=== PATIENT | female | born 1985 | race Caucasian/White ===

== ENCOUNTER 2017-02-10 12:27 | Inpatient (IN) | payer OTHER ==
[~2017-02-10] VITALS: Ht 162.6 cm; Wt 110.9 kg
[2017-02-10] MEDS ORDERED: PRENATAL ONE D1 EACH PO (12:52)
[2017-02-10 12:59] LABS: ABSOLUTE BASOPHIL COUNT 0 /CUMM (0.0-0.2); ABSOLUTE EOSINOPHIL COUNT 0.1 /CUMM (0.0-0.7); ABSOLUTE GRANULOCYTE CT 7.4 /CUMM (1.4-6.5); ABSOLUTE LYMPH COUNT 1.3 /CUMM (1.2-3.4); ABSOLUTE MONOCYTE COUNT 0.3 /CUMM (0.10-0.60); BASOPHIL % 0.1 % (0.0-2.0); EOSINOPHIL % 0.8 % (0-5); GRANULOCYTE % 80.8 % (42.2-75.2); HEMATOCRIT 37.8 % (37-47); MEAN CORPUSCULAR HGB 27.8 PG (27.0-31.0); MEAN CORPUSCULAR HGB CONC 33.3 G/DL (33.0-37.0); MEAN CORPUSCULAR VOLUME 83.5 FL (81.0-99.0); MEAN PLATELET VOLUME 8.8 FL (7.4-10.4); PLATELET COUNT 231 /CUMM (130-400); RBC DISTRIBUTION WIDTH 15.4 % (11.5-14.5); RED BLOOD CELL CT 4.53 /CUMM (4.20-5.40); WHITE BLOOD CELL COUNT 9.1 /CUMM (4.8-10.8)
--- NOTE | 2017-02-10 19:20 | History & Physical ---
General Information and HPI MD Statement: I have seen and personally examined NICOLAS JANE and documented this H&P. The patient is a 31 year old female at [38] weeks and [2] days gestation who presented with a chief complaint of [induction of labor for high blood pressure] . Source of Information: patient Exam Limitations: no limitations History of Present Illness: 31-year-old 1 para 0 who presents at 38 weeks and 2 days for induction of labor for mildly clamps. She began presenting with elevated blood pressures at 36 weeks and 5 days. The pressures have ranged from 140-160/80 to 90s. On initial presentation today blood pressure 137/83, blood pressures have ranged from 137-150/83-100. She had a recent 24-hour urine collection with a total protein of 666 mg. She denies headaches, visual changes, right upper quadrant or epigastric pain. Patient's history significant for acid reflux for which she has been taking Zantac, history of depression in 2002 she did not require medication during , history of eating disorder, BMI of 36.4 and initial visit. She relays a history of a "hole in her heart at ". She had a normal ATU visits and echocardiogram. 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 History ingredient specialist History : 1 Para: 0 Last Menstrual Period: 05/18/2016 Estimated Delivery Date: 04/25/2017 Past ingredient specialist History: none Medical History Blood Transfusion Hx: No Neurological: NONE EENT: labyrinthitis Cardiovascular: NONE Respiratory: NONE Gastrointestinal: GERD Hepatic: NONE Renal: NONE Musculoskeletal: NONE Psychiatric: depression, eating disorder Endocrine: NONE Blood Disorders: NONE 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 EENTM: Reports: no symptoms. Cardiovascular: Reports: no symptoms. Respiratory: Reports: no symptoms. GI: Reports: no symptoms. Genitourinary: Reports: see HPI. Musculoskeletal: Reports: no symptoms. Skin: Reports: no symptoms. Neurological/Psychological: Reports: no symptoms. Hematologic/Endocrine: Reports: no symptoms. Immunologic/Allergic: Reports: no symptoms. All Other Systems: Reviewed and Negative Exam & Diagnostic Data Last 24 Hrs of Vital Signs/I&O Intake & Output 02/10 1600 02/10 0800 02/10 0000 Intake Total Output Total Balance Patient 245 lb Weight Obstetric Exam Wgt Gained During : 35 Pelvimetry: na Dilation (cm): 0 Effacement (%): 50 Station: -3 Membranes: intact Fluid: unknown Fundal Height (cm): 40 Multiple Gestation? No Contractions: 0 #1 - FHR Baseline: 130 Category: 1 Estimated Weight: 7.5 Presentation: vtx by us Patient for Induction? Yes Lou Score Lou Score Response Value Cervix Position: posterior 0 Cervix Consistency: soft 2 Cervix Effacement: 30-50% 1 Cervix Dilation: closed 0 Total 3 Physical Exam General Appearance Alert (NAD), Oriented X3, Cooperative, No Acute Distress Skin No Rashes, No Breakdown, No Significant Lesion HEENT PERRLA Neck Supple Cardiovascular Regular Rate Lungs Clear to Auscultation, Normal Air Movement Abdomen Normal Bowel Sounds, Soft, No Tenderness, No Hepatospenomegaly, No Masses, gravid Neurological Normal Gait, Normal Speech, Strength at 5/5 X4 Ext Extremities No Clubbing, No Cyanosis Reproductive (FEMALE) Normal female genitalia Labs Blood Type & Rh: Opos Antibody Screen: neg Hct/Hgb & Platelets #1: 13.8 42. 288 Hct/Hgb & Platelets #2: 12.8 44.5 297 Rubella: imm VDRL #1: neg VDRL #2: neg HbsAg: neg HIV #1: neg HIV #2 neg 1 Hr P Group B Strep: neg Initial Ultrasound: 9.4w Anatomy Ultrasound: 20.2, ant plac echo, nl edward and fx "trivial pulmonary valve regurg) Ultrasound for EFW: 52% 36w+2 days, @ ATU 2625 Genetic Testin+4nl nt Last 24 Hrs of Labs/José: Laboratory Tests 02/10/17 1242: Ur Random Creatinine 48.4, U Random Total Protein 20 H, Protein/Creatinin Ratio 0.4 H 02/10/17 1242: Urine Color STRAW, Urine Clarity CLEAR, Urine pH 6.5, Ur Specific [place] <= 1.005, Urine Protein NEG, Urine Ketones NEG, Urine Nitrite NEG, Urine Bilirubin NEG, Urine Urobilinogen 0.2, Ur Leukocyte Esterase SMALL H, Ur Microscopic SEDIMENT EXAMINED, Urine RBC RARE, Urine WBC 1-3 H, Ur Epithelial Cells OCCAS, Urine Bacteria FEW H, Urine Hemoglobin NEG, Urine Glucose NEG 02/10/17 1240: Estimated GFR > 60, Uric Acid 5.0, AST 16, ALT 20, Lactate Dehydrogenase 459, CBC w Diff NO MAN DIFF REQ, RBC 4.53, MCV 83.5, MCH 27.8, RDW 15.4 H, MPV 8.8, Gran % 80.8 H, Lymphocytes % 14.6 L, Monocytes % 3.7, Eosinophils % 0.8, Basophils % 0.1, Absolute Granulocytes 7.4 H, Absolute Lymphocytes 1.3, Absolute Monocytes 0.3, Absolute Eosinophils 0.1, Absolute Basophils 0, PUBS MCHC 33.3 Assessment/Plan Assessment/Plan: 31 year old @38+2 weeks. IOL for preeclampsia without severe features. BP stable at present. If develops severe features, will consider magnesium sulfate. Cervix unfavorable. cervidil placed. Anticipate pitocin tomorrow am. ho depression. Pt at risk for PPDepression. Will asses after delivery. As Ranked By This Provider Problem List: 1. 2. Pre-eclampsia affecting childbirth Core Measures/Miscellaneous Venous Thromboembolism VTE Risk Factors: / VTE Contraindications: No Contraindications VTE Diagnosis: No Beta Jon Is Beta Jon a Home Med? No If Yes, Was This Ordered Today? No Antibiotics Is Patient on Antibiotics? No Attending MD Review Statement Attending Statement Attending MD Statement: examined this patient, discussed with family, discussed w/nursing
--- NOTE | 2017-02-11 14:25 | PN- OBGYN ---
Surgical Brief Attending Note Brief Attending Note: Late entry for 8:30AM Resume care from 8:30 AM, 31-year-old, G1 para 0 at 30 weeks 3 days intrauterine , she was admitted for induction of labor due to mild preeclampsia yesterday, she received Cervidil overnight, blood pressure was within normal limits. Cervidil was removed this morning, she was examined by RN, cervix was 1 cm dilated, on toco contractions every 1-3 minutes, heart tracing reassuring. We'll encourage patient to ambulate, monitor closely. Reassess contraction pattern in several hours. Plan of care reviewed with patient, she understand and agreed.
--- NOTE | 2017-02-11 14:28 | PN- OBGYN ---
Surgical Brief Attending Note Brief Attending Note: Patient is resting in bed, c/o leakage of fluid,ctxs are stronger than morning ctxs irregular cervix 1cm/50%/-3 will send amnisure , monitor closely. amnisure positive, will start pitocin for IOL. pt agreed with plan.
--- NOTE | 2017-02-11 21:50 | PN- OBGYN ---
Surgical Brief Attending Note Brief Attending Note: pt is comfortable with epidureal. ctxs q 4-5 min, FHR baseline 130s, with each ctx variable decles to 70-90, then return to baseline. cervix 1-2 cm/60%/-3 d/w pt about intolerance of labor, remote from delivery, plan for c- section. pt agreed . Risks of including but not limit to bleeding , infection, damage to organs etc d/w pt, she understand and agreed to proceed.
[2017-02-11 23:58] LABS: MEAN CORPUSCULAR VOLUME 83.4 FL (81.0-99.0); RBC DISTRIBUTION WIDTH 15.4 % (11.5-14.5)
[2017-02-12 00:02] LABS: ABSOLUTE BASOPHIL COUNT 0 /CUMM (0.0-0.2); ABSOLUTE EOSINOPHIL COUNT 0 /CUMM (0.0-0.7); ABSOLUTE LYMPH COUNT 1.2 /CUMM (1.2-3.4); BASOPHIL % 0 % (0.0-2.0); EOSINOPHIL % 0.1 % (0-5); GRANULOCYTE % 90.6 % (42.2-75.2); HEMATOCRIT 26.9 % (37-47); MEAN CORPUSCULAR HGB CONC 33.5 G/DL (33.0-37.0); MEAN PLATELET VOLUME 8.5 FL (7.4-10.4); PLATELET COUNT 261 /CUMM (130-400); RED BLOOD CELL CT 3.23 /CUMM (4.20-5.40); WHITE BLOOD CELL COUNT 23.2 /CUMM (4.8-10.8)
--- NOTE | 2017-02-12 01:21 | PN- OBGYN ---
Surgical Brief Attending Note Brief Attending Note: call by nurse at recovery room. blood clots and blood on sheet, EBL 300ml. VE: 2 small clots , no active bleeding. fundus firm. suspect lower uterine segment atony, 1 dose hemabate given.bimannual uterine message , observe pt, minimal bleeding. will observe closely. pt had 1200ml EBL during surgery, she received 1 U PRBC, 2nd U PRBC is given now. Hemoglobin 9 after surgery.BP 113/63, P 89, SO2 97% on room air at 1:50AM, pt still have heavy vaginal bleeidng, will go to OR for exam under anesthesia possible tamponade the utreus. plan d/w pt and , they agreed.
--- NOTE | 2017-02-12 04:00 | NUR ---
Pt arrived to ICU room 104 from CBC s/p with uterine bleeding and bakri bag in place. Upon arrival to ICU, pt is arousable to verbal stimuli and responsive to yes and no questions by shaking and nodding head. Pt is intubated with a number 7 tube at 24 cm, lung sounds were only heard on the left by RT and Dr. Skelton so the ETT was pulled back to 22 cm. Pt placed on the vent AC 24, TV 550, FIO2 100% and [address] in the 130's on the monitor BP 120/70. Pt with a left arterial a-line in place as well as right TLC. Pt's abdomen is distended with a dressing which is clean dry and intact. Mcarthur in place and draining clear, yellow urine. Pt has PC's and FFP running. Plan to go to IIU for uterine embolization.
--- NOTE | 2017-02-12 04:27 | Cons- CRCU ---
TRINO ALBERT 02/12/17 0427: General Information and HPI Consulting Request Date of Consult: 02/12/17 Requested By: MINNIE FELICIANO MD Reason for Consult: hemorrhage Hypotension Acute blood loss anemia needs massive transfusion Source of Information: neurocritical care physician Exam Limitations: unable to give history, clinical condition History of Present Illness: Patient is 31-year-old female 1 para 1 was induced due to preeclampsia and underwent section due to distress and found to have profound hemorrhage leading to hypotension and required massive transfusion and was transferred to ICU for closer monitoring. Patient was induced yesterday due to preeclampsia and her cervix was ripened and she started having regular uterine contractions but due to compromise/distress decision was made to do section. During her approximate blood loss was 1200 and patient tolerated procedure well and was transferred to recovery. After few hours patient was noted to have approximately 200-400 vaginal bleeding, uterine massage was done and uterus was contracted and firm but later on again her uterus was found in aTony and patient was passing blood clots per vagina and was started on massive transfusion due to hypotension and tachycardia. She was given 8 units of RBCs, 2 units of FFP's and one fresh frozen plasma. She was intubated. Her vitals were stable but patient was continuously bleeding. Braydon Skelton MD, Dr. Pierre, anesthesiologist, interventional radiologist and COMPUTER TAPE LIBRARIAN were present at bedside. I was contacted and most likely patient will need angiogram/VASCULAR embolization. Allergies/Medications Allergies: Coded Allergies: pineapple (Mild, ITCHING 02/12/17) Home Med List: Vit No.129/Iron/FA ( One Daily Tablet) 27 MG IRON-800 MCG TABLET 1 TAB PO DAILY ANEMIA (Reported) Current Medications: Current Medications Sig/Tiago Start time Last Medication Dose Route Stop Time Status Admin Butorphanol Tartrate 2 MG .STK-MED ONE 02/11 1659 DC IM 02/11 1700 Butorphanol Tartrate 1 MG Q4P PRN 02/10 1230 AC 02/11 IV 1707 Butorphanol Tartrate 1 MG Q4P PRN 02/10 1230 AC 02/11 IM 1706 Cefazolin Sodium 2 GM ONCE ONE 02/11 2345 DC 02/11 N/A 1 UNIT IV 02/12 0014 2215 Citric Acid/Sodium 30 ML ONCE ONE 02/11 2345 DC 02/11 Citrate PO 02/11 2346 2215 Hydroxyzine HCl 100 MG AT BEDTIME NEED.. 02/10 1945 AC 02/10 PO 2159 Lactated Ringer's 1,000 ML Q8H 02/10 1230 AC 02/11 IV 1501 Lidocaine 0 .STK-MED ONE 02/12 0427 DC .ROUTE Lidocaine 0 .STK-MED ONE 02/127 DC .ROUTE Misoprostol 25 MCG Q4P PRN 02/10 1230 AC VAG Morphine Sulfate 10 MG ONCE PRN 02/10 194 AC IM Oxytocin 10 UNITS ONCE ONE 02/12 0015 DC 02/11 IM 02/12 0016 2250 Oxytocin 30 UNITS PER PROTOCL 02/11 1500 AC Lactated Ringer's 500 ML IV Review of Systems Review of Systems Constitutional: Denies: fever. EENTM: Reports: see HPI. Cardiovascular: Reports: see HPI. GI: Reports: see HPI. Genitourinary: Reports: see HPI, dysuria, frequency. 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 Other Medical Hx: na Surgical History Surgical History: knee surgery and carpal tunnel Psychosocial History Smoking Status: Former Smoker Exam & Diagnostic Data Last 24 Hrs of Vital Signs/I&O Vital Signs Date Time Temp Pulse Resp B/P B/P Pulse O2 O2 Flow FiO2 Mean Ox Delivery Rate 02/13 0400 95 Nasal 2.0L Cannula 02/13 0000 99.1 119 20 120/60 94 Nasal 2.0L Cannula 02/12 2146 96 Nasal 2.0L Cannula 02/12 1600 96 Nasal 2.0L Cannula 02/12 1600 99.0 122 18 143/69 96 Nasal 2.0L Cannula 02/12 1200 100 Ventilator 40% 02/12 1053 40 02/12 0838 100 Ventilator 100% 02/12 0822 40 02/12 0800 100 Ventilator 40% 02/12 0800 98.7 96 24 110/56 100 Ventilator 40% Intake & Output 02/13 0800 02/13 0000 02/12 1600 Intake Total 1640 1069.3 Output Total 600 850 Balance 1040 219.3 Intake, IV 800 1069.3 Intake, Oral 840 0 Output, 300 Gastric Drainage Output, Other 0 0 Output, Urine 600 550 Patient 245 lb Weight Weight Estimated Measurement Method Physical Exam General Appearance: intubated, obese Head: atraumatic, normal appearance Neck: supple Respiratory: normal breath sounds Cardiovascular: regular rate/rhythm Last 48 Hrs of Labs/José: Laboratory Tests 02/12/17 0420: Troponin I Pending 02/12/17 0420: Lactic Acid Pending, PT Pending, INR Pending, APTT Pending, Fibrinogen Activity Pending, D-Dimer High Sensitivty Pending, CBC w Diff Pending, WBC Pending, RBC Pending, Hgb Pending, Hct Pending, MCV Pending, MCH Pending, RDW Pending, Plt Count Pending, MPV Pending, PUBS MCHC Pending 02/11/17 2350: CBC w Diff MAN DIFF ORDERED, RBC 3.23 L, MCV 83.4, MCH 28.0, RDW 15.4 H, MPV 8.5, Gran % 90.6 H, Lymphocytes % 5.1 L, Monocytes % 4.2, Eosinophils % 0.1, Basophils % 0 L, Absolute Granulocytes 21.0 H, Segmented Neutrophils 77 H, Band Neutrophils 6 H, Absolute Lymphocytes 1.2, Lymphocytes 11 L, Monocytes 4, Absolute Monocytes 1.0 H, Eosinophils 1, Absolute Eosinophils 0, Absolute Basophils 0, Metamyelocytes 1, Platelet Estimate ADEQUATE, Polychromasia 1+, Basophilic Stippling 1+, Anisocytosis 1+, Microcytic Cells 1+, PUBS MCHC 33.5 02/11/17 1413: Membrane Rupture POSITIVE 02/10/17 1242: Ur Random Creatinine 48.4, U Random Total Protein 20 H, Protein/Creatinin Ratio 0.4 H 02/10/17 1242: Urine Color STRAW, Urine Clarity CLEAR, Urine pH 6.5, Ur Specific [place] <= 1.005, Urine Protein NEG, Urine Ketones NEG, Urine Nitrite NEG, Urine Bilirubin NEG, Urine Urobilinogen 0.2, Ur Leukocyte Esterase SMALL H, Ur Microscopic SEDIMENT EXAMINED, Urine RBC RARE, Urine WBC 1-3 H, Ur Epithelial Cells OCCAS, Urine Bacteria FEW H, Urine Hemoglobin NEG, Urine Glucose NEG 02/10/17 1240: Estimated GFR > 60, Uric Acid 5.0, AST 16, ALT 20, Lactate Dehydrogenase 459, CBC w Diff NO MAN DIFF REQ, RBC 4.53, MCV 83.5, MCH 27.8, RDW 15.4 H, MPV 8.8, Gran % 80.8 H, Lymphocytes % 14.6 L, Monocytes % 3.7, Eosinophils % 0.8, Basophils % 0.1, Absolute Granulocytes 7.4 H, Absolute Lymphocytes 1.3, Absolute Monocytes 0.3, Absolute Eosinophils 0.1, Absolute Basophils 0, PUBS MCHC 33.3 Diagnostic Data EKG Results Sinus tachycardia Assessment/Plan Impression/Plan: Patient is 31-year-old para 1 status post came with hemorrhage needs massive transfusion/acute blood loss anemia, questionable DIC and most likely would need was scleral embolization/angiogram by IR. We will watch patient closely in ICU and will take care for the following problems Problem list 1. hemorrhage 2. Acute Dany anemia 3. Hypotension most likely due to hemorrhage required massive transfusion Plan 1. Closer monitoring in ICU 2. Stat CBC, ICU bundle, EKG, troponins to rule out ACS 3. We will do stat chest x-ray post intubation 4. We will repeat labs every 4 hours and transfuse accordingly with target hemoglobin more than 7 5. IR consultation for stat angiogram/VASCULAR embolization if needed 6. We will replete electrolytes accordingly 7. Will keep her nothing by mouth for now 8. Will check lactic acid 9. Her we will check DIC panel 10. We'll continuemassive transfusion protocol accordingly and while patient would be an massive transfusion protocol we will check calcium and potassium frequently and will treat hypocalcemia and hyperkalemia if needed 11. We'll maintain oxygen saturation more than 95%. 12. Will consider starting her on Unasyn. Consult Acknowledgment - Thank you for your consult request. MISHA CAMERON,Braydon KING 02/12/17 0601: Assessment/Plan Other Findings/Comments: I have personally seen and examined the patient. I agree with the resident's assessment and plan as recommended above. Briefly, the patient is a 31-year-old female who is 1 para 1, who underwent due to distress and was found to have profound hemorrhage leading to hypotension requiring massive transfusion protocol. The patient was resuscitated by OB and anesthesia. Due to the nature of her bleeding, I was consulted for ICU management. The patient is currently being evaluated by interventional radiology for possible embolization. She is hemodynamically stable noting her hemoglobin is greater than 10. She does not have a coagulopathy. Overall, the patient is responding to therapy. She remains intubated and on mechanical ventilation with propofol for sedation. A repeat chest x-ray and ABG are pending. He is not able to offer complaints. Once she is done with interventional radiology, we will repeat all of her labs and reassess. I discussed the plan with the housestaff and asked them to contact me should the patient's condition change or deteriorate. Consult Acknowledgment - Thank you for your consult request.
--- NOTE | 2017-02-12 04:30 | NUR ---
Labs drawn and sent on the patient. Pt stable for transport to IIU with me.
[2017-02-12 04:41] LABS: ABSOLUTE BASOPHIL COUNT 0 /CUMM (0.0-0.2); ABSOLUTE EOSINOPHIL COUNT 0 /CUMM (0.0-0.7); ABSOLUTE LYMPH COUNT 0.9 /CUMM (1.2-3.4)
[2017-02-12 04:46] LABS: ABSOLUTE GRANULOCYTE CT 12.7 /CUMM (1.4-6.5); ABSOLUTE MONOCYTE COUNT 0.9 /CUMM (0.10-0.60); BASOPHIL % 0.1 % (0.0-2.0); EOSINOPHIL % 0.1 % (0-5); GRANULOCYTE % 87.6 % (42.2-75.2); MEAN CORPUSCULAR HGB 28.1 PG (27.0-31.0); MEAN CORPUSCULAR VOLUME 85.4 FL (81.0-99.0); MEAN PLATELET VOLUME 8.8 FL (7.4-10.4); PLATELET COUNT 158 /CUMM (130-400); RBC DISTRIBUTION WIDTH 15.9 % (11.5-14.5); RED BLOOD CELL CT 3.76 /CUMM (4.20-5.40); WHITE BLOOD CELL COUNT 14.5 /CUMM (4.8-10.8)
[2017-02-12 04:55] LABS: HEMATOCRIT 32.1 % (37-47); PT 12.6 SEC (9.4-12.5); PTT 28 SEC (25-37)
--- NOTE | 2017-02-12 07:30 | NUR ---
Patient returned from IIU. During the procedure, the patient required her propofol to be increased to 50mcg per Dr. Skelton due to increased pressures on the vent and increased respiratory rate. Patient did receive 1 unit of PC's and 1 unit of FFP during the procedure. Vital signs remained stable throughout. On arrival back to [facility]CU, pt was settled into bed, labs were drawn and report was given to Ольга Moreno RN.
[2017-02-12 07:55] LABS: ABSOLUTE BASOPHIL COUNT 0 /CUMM (0.0-0.2); ABSOLUTE EOSINOPHIL COUNT 0 /CUMM (0.0-0.7); ABSOLUTE GRANULOCYTE CT 8.8 /CUMM (1.4-6.5); ABSOLUTE LYMPH COUNT 1.1 /CUMM (1.2-3.4); ABSOLUTE MONOCYTE COUNT 0.7 /CUMM (0.10-0.60); BASOPHIL % 0.1 % (0.0-2.0); EOSINOPHIL % 0 % (0-5); GRANULOCYTE % 83.5 % (42.2-75.2); MEAN CORPUSCULAR HGB 28.5 PG (27.0-31.0); MEAN CORPUSCULAR HGB CONC 34.1 G/DL (33.0-37.0); MEAN CORPUSCULAR VOLUME 83.6 FL (81.0-99.0); MEAN PLATELET VOLUME 8.7 FL (7.4-10.4); PLATELET COUNT 133 /CUMM (130-400); RBC DISTRIBUTION WIDTH 15.6 % (11.5-14.5); RED BLOOD CELL CT 3.21 /CUMM (4.20-5.40); WHITE BLOOD CELL COUNT 10.6 /CUMM (4.8-10.8)
[2017-02-12 08:00] VITALS: BP 110/56
--- NOTE | 2017-02-12 08:03 | PN- Resident CRCU ---
Subjective HPI/CRCU Issues: I saw the pt today at bedside. She is sedated, intubated with a RIJ line, which looks clean. apple and balloon P/R vagina in situ with minimal drain Objective Vital Signs & I&O Last 8 Hrs of Vitals and I&O: Vital Signs Date Time Temp Pulse Resp B/P B/P Pulse O2 O2 Flow FiO2 Mean Ox Delivery Rate 02/12 1200 100 Ventilator 40% 02/12 1053 40 02/12 0838 100 Ventilator 100% 02/12 0822 40 02/12 0800 100 Ventilator 40% 02/12 0800 98.7 96 24 110/56 100 Ventilator 40% 02/12 0420 100 Intake & Output 02/12 1600 Intake Total Output Total Balance Patient 245 lb Weight Weight Estimated Measurement Method Exam General Appearance: well developed/nourished, sedated, intubated, obese Head: normal appearance Neck: RIJ central line placed Respiratory: normal breath sounds, chest non-tender, no respiratory distress Cardiovascular: regular rate/rhythm Gastrointestinal: soft, non-tender Extremities: normal inspection, femoral and dorsalis pedis pulses felt Skin: intact, normal color Skin Temp/Moisture Exam: Warm/Dry Current Medications: Current Medications Sig/Tiago Start time Last Medication Dose Route Stop Time Status Admin Acetaminophen 650 MG Q6P PRN 02/12 1315 UNVr PO Acetaminophen 1,000 MG Q6P PRN 02/12 1315 UNVr IV Ampicillin Sodium/ 3,000 MG Q6 02/12 0600 AC 02/12 Sulbactam Sodium IV 1131 Sodium Chloride 100 ML Butorphanol Tartrate 2 MG .STK-MED ONE 02/11 1659 DC IM 02/11 1700 Butorphanol Tartrate 1 MG Q4P PRN 02/10 1230 DC 02/11 IV 1707 Butorphanol Tartrate 1 MG Q4P PRN 02/10 1230 DC 02/11 IM 1706 Calcium Gluconate 1 GM ONCE ONE 02/12 0545 DC 02/12 Sodium Chloride 100 ML IV 02/12 0644 0803 Carboprost 250 MCG .STK-MED ONE 02/12 0555 DC Tromethamine IM 02/12 0556 Cefazolin Sodium 2 GM ONCE ONE 02/11 2345 DC 02/11 N/A 1 UNIT IV 02/12 0014 2215 Citric Acid/Sodium 30 ML ONCE ONE 02/11 2345 DC 02/11 Citrate PO 02/11 2346 2215 Dextrose 25 GM ONCE ONE 02/12 0545 DC 02/12 IV 02/12 0546 0803 Fentanyl Citrate 300 MCG .STK-MED ONE 02/12 0213 DC IM 02/12 0214 Fentanyl Citrate 100 MCG .STK-MED ONE 02/11 2106 DC IM 02/11 210 Heparin Sodium 5,000 UNIT Q8 02/12 1400 AC (Porcine) SC Hydroxyzine HCl 100 MG AT BEDTIME NEED.. 02/10 1945 DC 02/10 PO 2159 Insulin Human Regular 10 UNITS ONCE ONE 02/12 0545 DC 02/12 IV 02/12 0546 0803 Lactated Ringer's 1,000 ML Q8H 02/10 1230 DC 02/11 IV 1501 Lidocaine 0 .STK-MED ONE 02/12 042 DC .ROUTE Lidocaine 0 .STK-MED ONE 02/12 042 DC .ROUTE Lorazepam 0 .STK-MED ONE 02/12 0634 DC .ROUTE Magnesium Sulfate 1 GM ONCE ONE 02/12 1015 AC 02/12 Dextrose/Water 100 ML IV 02/12 1414 1016 Magnesium Sulfate 1 GM ONCE ONE 02/12 0545 DC 02/12 Dextrose/Water 100 ML IV 02/12 0944 0837 Midazolam HCl 5 MG .STK-MED ONE 02/12 213 DC IM 02/12 021 Midazolam HCl 5 MG .STK-MED ONE 02/11 2107 DC IM 02/12 2108 Misoprostol 25 MCG Q4P PRN 02/10 1230 DC VAG Morphine Sulfate 2 MG Q4P PRN 02/12 1315 UNVr IV Morphine Sulfate 10 MG .STK-MED ONE 02/11 2106 DC IV 02/11 2107 Morphine Sulfate 10 MG ONCE PRN 02/10 1945 DC IM Non-Formulary 0 SEE ADMIN CRITERIA 02/12 0900 DC Medication ANY Oxytocin 10 UNITS ONCE ONE 02/12 0015 DC 02/11 IM 02/12 0016 2250 Oxytocin 10 UNITS .STK-MED ONE 02/11 2127 DC IM 02/12 2128 Oxytocin 20 UNITS .STK-MED ONE 02/11 2107 DC IV 02/12 2108 Oxytocin 30 UNITS PER PROTOCL 02/11 1500 DC Lactated Ringer's 500 ML IV Pantoprazole Sodium 40 MG DAILY 02/12 1000 AC 02/12 IV 1016 Propofol 1,000 MG Q24H 02/12 0915 02/12 N/A 100 ML IV 0914 Sodium Chloride 1,000 ML Q10H 02/12 0900 02/12 IV 0901 Antibiotics Antibiotic: UNASYN IV/PO? IV Radiology Findings: IMPRESSION: Successful bilateral uterine artery embolization in the setting of hemorrhage. Impression/Plan Impression/Problem List Impression: Patient is 31-year-old para 1 status post came with hemorrhage requiring 8 prbc and 2 FFP, B/L uterine artery embolisation done with Uterine curettage and Barkri ballon placement done. She was transferred to ICU for close monitoring. Problem List: 1. hemorrhage 2. Acute Blood loss anemia Plan: * vitals monitoring * w/f vaginal bleed and drain. * strict I/O * Keep more than 7. If needed transfusion. * on unasyn * plan for extubation later today. * replete electrolytes accordingly * rpt coagualtion profile. Problem List: 1. Pre-eclampsia affecting childbirth 2. hemorrhage Pain Ratin Tomorrow's Labs & Rationales: icu,cbc Plan DVT/Prophylaxis: mechanical, pharmacological
--- NOTE | 2017-02-12 08:04 | Operative Report ---
Operative/Inv Procedure Report Surgery Date: 02/11/17 Name of Procedure: Primary low transverse section via Pfannenstiel Pre-Operative Diagnosis: G1 para 0 at 38 weeks 3 days intrauterine , mild preeclampsia, intolerance of labor Post-Operative Diagnosis: Same Estimated Blood Loss: 1200ML Surgeon/Xm1 Tank Driver: neelam Qiu MD Cynthia Ronan, MD Anesthesia: epidural IV Fluids: 1700 mL Implants: Ringer's Urine Output: 200 mL clear urine at the end of procedure Specimens: Placenta Complications: None Condition: Stable Operative Indication: 31-year-old, G1 para 0 at 30 weeks 3 days intrauterine , induction of labor due to mild preeclampsia, intolerance of labor, remote from delivery. Operative/Procedure Note Note: The patient was taken to the operating room where epidural anesthesia was found to be adequate. She was then prepared and draped in the usual sterile fashion and dorsal supine position with a leftward tilt. A Pfannenstiel skin incision was then made with the scalpel and carried through to the underlying layer of the fascia with the Bovie. The fascial was incised in the midline and the incision extended laterally with the Jim scissors. The superior aspect and inferior aspect of fascial incision was bluntly, the rectus muscle were then in the midline. And the peritoneum identified tented up and entered bluntly, the peritoneum incision was then extended superiorly and inferiorly with good visualization of the bladder. The bladder blade was then inserted and the vesicouterine peritoneum identified, grasped with the pickups and entered sharply with the Metzenbaum scissors. The incision was then extended laterally and the bladder flap created digitally. The bladder blade was then reinserted and the lower uterine segment incised in a transverse fashion with the scalpel. The uterine incision was then extended laterally, the bladder blade was removed and infant head delivered atraumatically. The nose and mouth was suctioned with suction bulb, and the cord clamped and cut. The was handed off to the waiting pediatricians. The placenta was then removed manually, the uterus exteriorized and cleared of all clots and debris. The uterine incision was repaired with 0 Vicryl in a running locked fashion. A second layer of the same suture was used to obtain excellent hemostasis. A left side corner of the uterine incision active bleeding noted, four figure of 8 suture were was used to achieve excellent hemostasis. The uterus returned to the abdomen. The gutters were cleared of all clots, and the rectus muscle reapproximated with 2-0 Vicryl. The fascia was reapproximated with 0 Vicryl in a running fashion. Skin was closed with liz. The patient tolerated procedure well. Sponge, lap and needle counts were correct 2. Patient was taken to the recovery room in stable condition. In recovery room hemoglobin was 9.0, BP 110-90/60-50s, P 80-90s average, due to estimated blood loss 1200 during the surgery, will transfuse patient with 2 units of packed red blood cell, patient agreed with the plan. Findings: Female infant in cephalic presentation , head wedged in the pelvis, weight 6 lbs. 3 oz., Apgars 7 and 8 and 9. multiple uterine fibroids were noted ,1 anterior intramural fibroid just above the uterine incision, heavy bleeding encountered during surgery. Normal ovaries and tubes.
[2017-02-12 08:05] LABS: HEMATOCRIT 26.8 % (37-47)
--- NOTE | 2017-02-12 08:15 | NUR ---
When reviewing patient's events and rhythms, the patient was noted to have had a brief episode of bradycardia at 0738, slip placed on ICU record. Dr. Avitia and Dr. London made aware, will continue to monitor.
[2017-02-12 08:17] LABS: PT 13.4 SEC (9.4-12.5); PTT 28 SEC (25-37)
--- NOTE | 2017-02-12 08:18 | Operative Report ---
Operative/Inv Procedure Report Surgery Date: 02/12/17 Name of Procedure: Examined under anesthesia Uterine curettage Barkri ballon placement Pre-Operative Diagnosis: PPH Post-Operative Diagnosis: PPH Estimated Blood Loss: 1000ml Surgeon/Bargeman: neelam Qiu MD Cynthia Ronan, MD Anesthesia: general endotracheal tube IV Fluids: normal saline Lactate Ringer's Urine Output: 50 mL concentrated urine at the end of procedure Specimens: None Complications: hemorrhage Operative Indication: 31-year-old status post primary section for intolerance of labor, hemorrhage Operative/Procedure Note Note: The patient was status post primary , while observed in the recovery room, she was found to have heavy vaginal bleeding with clots, the decision was made to do examination under anesthesia, patient agreed with the plan. Patient was brought to the operating room where general anesthesia was obtained without difficulty, she was then put into dorsal lithotomy position and prepared and draped in usual sterile fashion. She was examined under anesthesia, evacuated large clots from the uterine cavity, estimated blood loss 500ml. at this time patient was found tachycardia, heart rate at 130-140,hypotension due to acute blood loss. Massive transfusion protocol activated, patient was stabilized by anesthesia. Attention was then turned to uterine bleeding, 1 dose of Hemabate was injected to the cervix. Gentle curettage was also done with Myles curet. A Barkri balloon was placed into the lower uterine segment, 180 mL normal saline was used to inflate the balloon. Observe patient, no active bleeding from the vagina seen. Interventional radiology informed, will transport patient to interventional radiology for bilateral uterine artery embolization. Discussed plan with patient's , he understand and agreed.
--- NOTE | 2017-02-12 09:04 | NUR ---
PT BROUGHT TO FLOOR FROM IR SUITE. PT SEDATED ON PROPOFOL GTT, VENTED AT 40% SAT 100%, VSS. A LINE IN PLACE TO L RADIAL, RIJ TLC IN PLACE. PT HAS NESTOR WRIST RESTRAINTS IN PLACE, VAZQUEZ AND BAKERI BAG TO BEDSIDE DRAINAGE. ABD DRESSING C/D/I, DOPPLER PEDAL AND FEMORAL PULSES NOTED, +2 EDEMA TO NESTOR LE. PT K 6.4, RECIEVED 1 GM CA GLUCONAT, 10 UNITS NOVOLIN AND 1 AMP D50, RECHECK OF K =4.9, MAG 1.3 MAG 1GM INFUSING IV. H/H 9.1/.8 CURRENTLY PT RECIEVED 8 UNITS PRBC, INR 1.28 PT RECEIVED 2 UNITS FFP. PT TO LIE FLAT UNITL 1400 PER OBGYN, WILL CONT TO MON.
--- NOTE | 2017-02-12 12:23 | RADIOLOGY REPORT ---
EXAMINATION: XR PORTABLE CHEST CLINICAL INFORMATION: hemorrhage. COMPARISON: None. TECHNIQUE: Portable frontal view of the chest was obtained. FINDINGS: ET tube is present with its tip about 4.4 cm above the francisca. An NG tube is in stomach. The right IJ line has its tip in the distal SVC. The heart size is normal with no evidence of CHF. Bibasilar atelectasis is present. IMPRESSION: ET tube, NG tube and central line as described above. Bibasilar atelectasis.
--- NOTE | 2017-02-12 12:24 | ULTRASOUND REPORT ---
PROCEDURE: PELVIC ANGIOGRAM, SELECTIVE ANTERIOR DIVISION HYPOGASTRIC ANGIOGRAM RIGHT AND LEFT, SELECTIVE UTERINE ARTERY ANGIOGRAMS, SUCCESSFUL BILATERAL UTERINE ARTERY EMBOLIZATION CLINICAL INFORMATION: Life-threatening hemorrhage status post . COMPARISON: None CONSENT: Informed consent was obtained from the patient's prior to the procedure. During this process, the procedure and potential alternatives were explained, along with the intended outcome and benefits. The risks of the procedure including the possibility of an unsuccessful procedure, as well as the risk of not doing the procedure were discussed. The was given the opportunity to ask questions regarding the procedure and appeared competent to make decisions. A signed consent form documenting this discussion was placed in the medical record. A time out procedure was performed. ACCESS: Right common femoral artery CONTRAST: 207 mL Optiray 320 SEDATION: None, patient on propofol drip. MEDICATIONS: 10 mL 1% lidocaine GUIDANCE: Ultrasound and fluoroscopy COMPLICATIONS: None FLUOROSCOPY TIME: 22.8 minutes TECHNIQUE/FINDINGS: The procedure was done emergently and the patient was placed on the procedure table in supine position. The right groin was prepped and draped. All elements of maximal sterile barrier technique followed including use of cap, mask, sterile gown, sterile gloves, a sterile full body drape and hand hygiene. Also followed skin preparation with 2% chlorhexidine for cutaneous antisepsis, and sterile ultrasound preparation with sterile gel and probe. Ultrasound guidance for vascular access was utilized with ultrasound evaluation of the potential access site and documentation that the right common femoral artery was patent. Under real-time ultrasound, I visualized the vascular needle entry and recorded and reported US images from this in our PACS system. A micro-access system was utilized with a singlewall puncture of the right common femoral artery. A 5 Colombian vascular sheath was placed. A flushed catheter was placed in the distal aorta and pelvic angiogram demonstrated the uterine arteries bilaterally. All vascular structures were attenuated probably secondary to the patient's hypotension. A catheter was passed across the aortic bifurcation and into the left hypogastric artery. Using an angled glide catheter and coaxially placed microcatheter, the uterine artery was successfully cannulated. Selective uterine artery angiogram demonstrated uterine vasculature on the left. Subsequently, 2 1/2 syringes of embospheres 7-900 um in size were instilled into the uterine artery until stasis. This was followed by Gelfoam pledgets. A completion hypogastric angiogram on the left demonstrates no significant filling of the uterine branches. A Eduard loop was then formed in the aorta with a 5 Colombian glide catheter and the catheter was brought down into the right common iliac artery with successful cannulation of the right hypogastric artery and eventually the right uterine artery. Selective right hypogastric angiogram demonstrated the uterine artery well. No active extravasation was seen. After successful cannulation of the uterine artery itself a repeat uterine artery angiogram was performed that demonstrated typical branching pattern in the large uterus. Subsequently, 2 1/2 syringes of 7-900 um-sized embospheres were instilled into the uterine artery followed by Gelfoam pledgets. A completion hypogastric angiogram showed no filling of the uterine artery. The catheter was removed and a flush catheter was placed in the mid abdominal aorta. A completion aortogram shows no evidence of any filling of abnormal vessels or hemorrhage. At the end of the case, all catheters were removed along with the sheath and hemostasis was obtained after vascular compression. The patient was moved off the angiographic table in good condition. IMPRESSION: Successful bilateral uterine artery embolization in the setting of hemorrhage.
[2017-02-12 12:57] LABS: ABSOLUTE BASOPHIL COUNT 0 /CUMM (0.0-0.2); ABSOLUTE EOSINOPHIL COUNT 0 /CUMM (0.0-0.7); ABSOLUTE GRANULOCYTE CT 7.8 /CUMM (1.4-6.5); ABSOLUTE LYMPH COUNT 1.3 /CUMM (1.2-3.4); ABSOLUTE MONOCYTE COUNT 0.7 /CUMM (0.10-0.60); BASOPHIL % 0.1 % (0.0-2.0); EOSINOPHIL % 0 % (0-5); GRANULOCYTE % 79.9 % (42.2-75.2); MEAN CORPUSCULAR HGB 28.5 PG (27.0-31.0); MEAN CORPUSCULAR HGB CONC 33.6 G/DL (33.0-37.0); MEAN CORPUSCULAR VOLUME 84.8 FL (81.0-99.0); PLATELET COUNT 133 /CUMM (130-400); RBC DISTRIBUTION WIDTH 15.7 % (11.5-14.5); RED BLOOD CELL CT 3.18 /CUMM (4.20-5.40); WHITE BLOOD CELL COUNT 9.8 /CUMM (4.8-10.8)
--- NOTE | 2017-02-12 14:53 | NUR ---
PT EXTUBATED BY RT AT 1445, PT ALERT AND ORIENTED X 3, AT BEDSIDE SAT 96% ON 2LNC, NO S/SX OF DISTRESS, WILL CONT TO MON.
[2017-02-12 16:00] VITALS: BP 143/69
--- NOTE | 2017-02-12 19:01 | PN- OBGYN ---
Surgical Brief Attending Note Brief Attending Note: Patient seen, she was extubated, on O2 nasal cannula, she is awake and aleet, c/ o start to have slight incisional pain PE: Vitals are stable abdomen: soft, mild tender at incision site, uterus firm, Bakri ballon drainage minimum blood . Ext: edema, DCT (-) A/P: 31-year-old, s/p PLTCS , profound hemorrhage, status post massive blood transfusion,Barkri ballon placement, B/L uterine artery embolization. 1. h/h 9.08/23, stable . Critical care team consultation and management appreciated .management per ICU team. 2. If Bakri ballon drainage remained minimal blood, will consider slowly deflate ballon tomorrow. 3. will monitor vitals , blood work and vaginal bleeding closely
[2017-02-12 20:46] LABS: ABSOLUTE BASOPHIL COUNT 0 /CUMM (0.0-0.2); ABSOLUTE EOSINOPHIL COUNT 0 /CUMM (0.0-0.7); ABSOLUTE GRANULOCYTE CT 9.5 /CUMM (1.4-6.5); ABSOLUTE LYMPH COUNT 1.2 /CUMM (1.2-3.4); ABSOLUTE MONOCYTE COUNT 0.6 /CUMM (0.10-0.60); BASOPHIL % 0.2 % (0.0-2.0); EOSINOPHIL % 0.2 % (0-5); GRANULOCYTE % 83.4 % (42.2-75.2); HEMATOCRIT 26.3 % (37-47); MEAN CORPUSCULAR HGB 28.2 PG (27.0-31.0); MEAN CORPUSCULAR HGB CONC 33.3 G/DL (33.0-37.0); MEAN CORPUSCULAR VOLUME 84.5 FL (81.0-99.0); MEAN PLATELET VOLUME 8.7 FL (7.4-10.4); PLATELET COUNT 141 /CUMM (130-400); RBC DISTRIBUTION WIDTH 16.4 % (11.5-14.5); RED BLOOD CELL CT 3.11 /CUMM (4.20-5.40); WHITE BLOOD CELL COUNT 11.4 /CUMM (4.8-10.8)
[2017-02-13] VITALS: BP 120/60
--- NOTE | 2017-02-13 00:09 | NUR ---
7P-11P.PT A/OX3.FOLLOW COMMANDS.C'O INCISIONAL PAIN AND TYLENOL GIVEN WITH GOOD EFFECT.AVSS.C'O ITCHINESS FROM UPPER BODY AND MADE AWARE AND EVALUATED PT.GERA PO WELL. ABD INCISION CDI. BARKI BALLOON INTACT WITH MIN DRAINAGE. VAZQUEZ PATENT WITH GOOD UO.IVF CONT VIA TLC SITE.PIV INTACT.PLAN OF CARE REVIEWED WITH PT/.LABS DRAWN AND RESULTS REVIEWED.
--- NOTE | 2017-02-13 04:00 | NUR ---
PATIENT ALRT AND ORIENTED.PAIENT TURNED AND REPOSITIONED. PATIENT HAS SMALL AMOUNT OF DRIED BLOOD ON PAD UNDER BUTTOCKS. NO ACTIVE DRAINAGE NOTED. MONITOR SINUS TACHYCARDIA
--- NOTE | 2017-02-13 06:33 | PN- Resident CRCU ---
Subjective HPI/CRCU Issues: I saw the pt today at bedside. Pt lying flat, comfortable. no overt night events. Pt cmplaints of pain at the site of surgery and gas pain. She says she is able to take her breafast. She is hemodynamically stable. Objective Vital Signs & I&O Last 8 Hrs of Vitals and I&O: Vital Signs Date Time Temp Pulse Resp B/P B/P Pulse O2 O2 Flow FiO2 Mean Ox Delivery Rate 02/13 1200 96 Nasal 2.0L Cannula 02/13 0800 97 Nasal 2.0L Cannula 02/13 0800 99.0 98 18 130/80 97 Nasal 2.0L Cannula 02/13 0730 99.0 02/13 0400 95 Nasal 2.0L Cannula 02/13 0000 99.1 119 20 120/60 94 Nasal 2.0L Cannula 02/12 2146 96 Nasal 2.0L Cannula 02/12 1600 96 Nasal 2.0L Cannula 02/12 1600 99.0 122 18 143/69 96 Nasal 2.0L Cannula Intake & Output 02/13 1600 Intake Total Output Total Balance Patient 244 lb Weight Exam General Appearance: well developed/nourished, no apparent distress, alert, awake , obese Head: normal appearance Ears, Nose, Throat: normal pharynx Neck: normal inspection, supple, full range of motion Respiratory: normal breath sounds, chest non-tender, no respiratory distress Cardiovascular: regular rate/rhythm Gastrointestinal: normal bowel sounds, soft, non-tender Extremities: normal inspection Skin: intact, normal color Weaning Parameters NIF: 31 Minute Volume: 12.7 Resp rate: 24 Vt: 550 Heart Rate: 105 Weaning Schedule Start Time: 1404 Minute Volume: 12.7 Resp Rate: 17 Vt: 770 Heart Rate: 106 End Time: 1435 Central Line Site: [facility] Current Medications: Current Medications Sig/Tiago Start time Last Medication Dose Route Stop Time Status Admin Acetaminophen 650 MG Q6P PRN 02/12 1315 AC 02/12 PO 2238 Acetaminophen 1,000 MG Q6P PRN 02/12 1315 DC 02/13 IV 0502 Ampicillin Sodium/ 3,000 MG Q6 02/12 0600 AC 02/13 Sulbactam Sodium IV 1154 Sodium Chloride 100 ML Diphenhydramine HCl 25 MG ONCE ONE 02/12 2330 DC 02/12 PO 02/12 2331 2350 Docusate Sodium 100 MG DAILY NEEDED PRN 02/12 1815 AC PO Heparin Sodium 5,000 UNIT Q8 02/12 1400 DC 02/12 (Porcine) SC 1424 Magnesium Oxide 400 MG ONCE ONE 02/13 0930 DC 02/13 PO 02/13 0931 0947 Magnesium Sulfate 1 GM ONCE ONE 02/12 1015 DC 02/12 Dextrose/Water 100 ML IV 02/12 1414 1016 Morphine Sulfate 2 MG Q4P PRN 02/12 1315 AC IV Oxycodone/ 1 TAB Q6P PRN 02/13 0945 AC 02/13 Acetaminophen PO 0949 Pantoprazole Sodium 40 MG DAILY 02/12 1000 AC 02/13 IV 0947 Propofol 1,000 MG Q24H 02/12 0915 DC 02/12 N/A 100 ML IV 0914 Senna/Docusate Sodium 2 TAB DAILY 02/12 1814 AC 02/13 PO 0947 Simethicone 80 MG Q6P PRN 02/13 0945 AC PO Simethicone 40 MG ONCE ONE 02/13 0900 DC 02/13 PO 02/13 0901 1017 Simethicone 40 MG ONCE ONE 02/13 0345 DC 02/13 PO 02/13 0346 0445 Sodium Chloride 1,000 ML Q10H 02/12 0900 DC 02/13 IV 0227 Antibiotics Antibiotic: unasyn Impression/Plan Impression/Problem List Impression: Patient is 31-year-old para 1 status post came with hemorrhage requiring 8 prbc and 2 FFP, B/L uterine artery embolisation done with Uterine curettage and Barkri ballon placement done. She was transferred to ICU for close monitoring. Problem List: 1. hemorrhage 2. Acute Blood loss anemia Plan: * regular diet * vitals monitoring * w/f vaginal bleed and drain.Bakri ballon is deflated twice. * Keep hb more than 7. If needed transfusion. * on unasyn * replete electrolytes accordingly * rpt coagualtion profile. * ambulate at will * cantral line can be renoved tomorrow. * care Problem List: 1. hemorrhage 2. Pre-eclampsia affecting childbirth Pain Ratin Tomorrow's Labs & Rationales: icu,cbc Plan DVT/Prophylaxis: mechanical, pharmacological
[2017-02-13 06:44] LABS: ABSOLUTE BASOPHIL COUNT 0 /CUMM (0.0-0.2); ABSOLUTE EOSINOPHIL COUNT 0.1 /CUMM (0.0-0.7); ABSOLUTE LYMPH COUNT 1.2 /CUMM (1.2-3.4); ABSOLUTE MONOCYTE COUNT 0.6 /CUMM (0.10-0.60); BASOPHIL % 0.3 % (0.0-2.0); EOSINOPHIL % 0.6 % (0-5); HEMATOCRIT 25.1 % (37-47); MEAN CORPUSCULAR HGB 28.6 PG (27.0-31.0); MEAN CORPUSCULAR HGB CONC 33.7 G/DL (33.0-37.0); MEAN CORPUSCULAR VOLUME 84.9 FL (81.0-99.0); MEAN PLATELET VOLUME 8.9 FL (7.4-10.4); PLATELET COUNT 142 /CUMM (130-400); RBC DISTRIBUTION WIDTH 16.6 % (11.5-14.5); RED BLOOD CELL CT 2.95 /CUMM (4.20-5.40); WHITE BLOOD CELL COUNT 10.8 /CUMM (4.8-10.8)
--- NOTE | 2017-02-13 07:00 | PN- CRCU ---
Subjective HPI/Critical Care Issues: The patient is awake and alert. There has not been any further bleeding reported overnight. She remains hemodynamically stable. Her heart rate was elevated slightly, noting her heart rate is in the low 100's. She has no increased shortness of breath, chest pain or congestion. She has some incisional pain when she coughs. She offers no further complaints. Objective Current Medications: Current Medications Sig/Tiago Start time Last Medication Dose Route Stop Time Status Admin Acetaminophen 650 MG Q6P PRN 02/12 1315 AC 02/12 PO 2238 Acetaminophen 1,000 MG Q6P PRN 02/12 1315 AC 02/13 IV 0502 Ampicillin Sodium/ 3,000 MG Q6 02/12 0600 AC 02/13 Sulbactam Sodium IV 0514 Sodium Chloride 100 ML Diphenhydramine HCl 25 MG ONCE ONE 02/12 2330 DC 02/12 PO 02/12 2331 2350 Docusate Sodium 100 MG DAILY NEEDED PRN 02/12 1815 AC PO Heparin Sodium 5,000 UNIT Q8 02/12 1400 DC 02/12 (Porcine) SC 1424 Lorazepam 2 MG .STK-MED ONE 02/12 0717 DC IM 02/12 0718 Magnesium Sulfate 1 GM ONCE ONE 02/12 1015 DC 02/12 Dextrose/Water 100 ML IV 02/12 1414 1016 Magnesium Sulfate 1 GM ONCE ONE 02/12 0545 DC 02/12 Dextrose/Water 100 ML IV 02/12 0944 0837 Morphine Sulfate 2 MG Q4P PRN 02/12 1315 AC IV Non-Formulary 0 SEE ADMIN CRITERIA 02/12 09 DC Medication ANY Pantoprazole Sodium 40 MG DAILY 02/12 1000 AC 02/12 IV 1016 Propofol 1,000 MG Q24H 02/12 0915 DC 02/12 N/A 100 ML IV 0914 Senna/Docusate Sodium 2 TAB DAILY 02/12 1814 AC PO Simethicone 40 MG ONCE ONE 02/13 0345 DC 02/13 PO 02/13 0346 0445 Sodium Chloride 1,000 ML Q10H 02/12 0900 AC 02/13 IV 0227 Vital Signs & I&O Last 24 Hrs of Vitals and I&O: Vital Signs Date Time Temp Pulse Resp B/P B/P Pulse O2 O2 Flow FiO2 Mean Ox Delivery Rate 02/12 2146 96 Nasal 2.0L Cannula 02/12 1600 96 Nasal 2.0L Cannula 02/12 1600 99.0 122 18 143/69 96 Nasal 2.0L Cannula 02/12 1200 100 Ventilator 40% 02/12 1053 40 02/12 0838 100 Ventilator 100% 02/12 0822 40 02/12 0800 100 Ventilator 40% 02/12 0800 98.7 96 24 110/56 100 Ventilator 40% Intake & Output 02/13 0800 02/13 0000 02/12 1600 Intake Total 1640 1069.3 Output Total 600 850 Balance 1040 219.3 Intake, IV 800 1069.3 Intake, Oral 840 0 Output, 300 Gastric Drainage Output, Other 0 0 Output, Urine 600 550 Patient 245 lb Weight Weight Estimated Measurement Method Exam General Appearance: no apparent distress, alert, awake, comfortable Head: atraumatic, normal appearance Neck: supple Respiratory: normal breath sounds, no respiratory distress, lungs clear Cardiovascular: regular rate/rhythm, edema Abdomen: staple line is clean and dry Extremities: trace generalized edema Skin: intact, normal color, warm/dry Results Last 24 Hrs of Lab Results: Laboratory Tests 02/13/17 0500: Anion Gap 6, Estimated GFR > 60, Glucose 65, Calcium 7.2 L, Phosphorus 4.2, Magnesium 1.9, Total Bilirubin 1.0, AST 32, ALT 24, Albumin 2.2 L, CBC w Diff NO MAN DIFF REQ, RBC 2.95 L, MCV 84.9, MCH 28.6, RDW 16.6 H, MPV 8.9, Gran % 83.0 H, Lymphocytes % 10.8 L, Monocytes % 5.3, Eosinophils % 0.6, Basophils % 0.3, Absolute Granulocytes 9.0 H, Absolute Lymphocytes 1.2, Absolute Monocytes 0.6, Absolute Eosinophils 0.1, Absolute Basophils 0, PUBS MCHC 33.7 02/12/17 2020: Anion Gap 5, Estimated GFR > 60, Glucose 71, Calcium 7.5 L, Phosphorus 4.6 H, Magnesium 1.9, Total Bilirubin 1.1, AST 33, ALT 26, Albumin 2.2 L, CBC w Diff NO MAN DIFF REQ, RBC 3.11 L, MCV 84.5, MCH 28.2, RDW 16.4 H, MPV 8.7, Gran % 83.4 H, Lymphocytes % 10.7 L, Monocytes % 5.5, Eosinophils % 0.2, Basophils % 0.2, Absolute Granulocytes 9.5 H, Absolute Lymphocytes 1.2, Absolute Monocytes 0.6, Absolute Eosinophils 0, Absolute Basophils 0, PUBS MCHC 33.3 02/12/17 1330: Troponin I 0.10 02/12/17 1145: Anion Gap 7, Estimated GFR > 60, Glucose 67, Calcium 7.5 L, Phosphorus 4.5, Magnesium 2.1, Total Bilirubin 1.0, AST 25, ALT 19, Albumin 2.0 L, CBC w Diff NO MAN DIFF REQ, RBC 3.18 L, MCV 84.8, MCH 28.5, RDW 15.7 H, MPV 9.0, Gran % 79.9 H, Lymphocytes % 13.4 L, Monocytes % 6.6, Eosinophils % 0, Basophils % 0.1, Absolute Granulocytes 7.8 H, Absolute Lymphocytes 1.3, Absolute Monocytes 0.7 H, Absolute Eosinophils 0, Absolute Basophils 0, PUBS MCHC 33.6 02/12/17 1000: Troponin I Cancelled 02/12/17 0820: pH 7.36, pCO2 35, pO2 123 H, HCO3 19 L, ABG O2 Sat (Measured) 98.0, P-50 (Temp Corrected) NO, Carboxyhemoglobin 0.3 L, O2 Concentration % 40%, Respiration Rate 24, O2 Delivery Method VENT, Vent Mode AC, Expiratory Pressure 5, Tidal Volume 550, Phlebotomy Draw Site LEFT RADIAL A LINE 02/12/17 0730: Lactic Acid 2.5 H 02/12/17 0730: Anion Gap 7, Estimated GFR > 60, Glucose 84, Calcium 7.0 L, Phosphorus 4.5, Magnesium 1.3 L, Total Bilirubin 1.5 H, AST 24, ALT 24, Troponin I 0.15 *H, Albumin 1.9 L, PT 13.4 H, INR 1.28 H, APTT 28, CBC w Diff NO MAN DIFF REQ, RBC 3.21 L, MCV 83.6, MCH 28.5, RDW 15.6 H, MPV 8.7, Gran % 83.5 H, Lymphocytes % 10.2 L, Monocytes % 6.2, Eosinophils % 0, Basophils % 0.1, Absolute Granulocytes 8.8 H, Absolute Lymphocytes 1.1 L, Absolute Monocytes 0.7 H, Absolute Eosinophils 0, Absolute Basophils 0, PUBS MCHC 34.1 Impression/Plan Impression/Plan Impression/Plan: 1. Hemorrhagic shock secondary to bleeding. 2. Mild sinus tachycardia, without chest pain, shortness of breath or increased hypoxemia. 3. Blood loss anemia. Recommendations: * Will discuss further management with APARTMENT MAINTENANCE WORKER. * Follow-up cultures. * Continue empiric IV Unasyn. * Check a follow-up CBC later today around 2 PM. * Continue to monitor for bleeding. * Continue medication for pain control. * Advance diet as tolerated. * Stop IV fluids. * Continue bowel regimen. * Alps for DVT prophylaxis only, hold off on subcutaneous heparin due to bleeding. * Will downgrade from ICU when cleared by APARTMENT MAINTENANCE WORKER.
[2017-02-13 08:00] VITALS: BP 130/80
--- NOTE | 2017-02-13 08:30 | NUR ---
REC'D THE PT AWAKE IN BED. PT IS A&OX3, RESENDIZ. DENIES ANY PAIN BUT C/O GAS PAIN. DR Tal CHRIS NOTIFIED AND MYLICON 40MG PO ORDERED. AWAITNG ARRIVAL FROM PHARMACY. PT IS IN A NSR/ST WITHOUT ECTOPY PER THE IMAGING SYSTEM ADMINISTRATOR. NOTED TO HAVE 2+ EDEMA TO THE BUE AND 3+ EDEMA TO THE BLE. PEDAL PULSES ARE DIMINISHED SECONDARY TO EDEMA. NETSOR BS ARE CLEAR WITH AN O2 SAT OF 97% ON A 2LNC. ABD IS SOFT WITH NORMOACTIVE BOWEL SOUNDS. PT CHANGED FROM NPO TO A REGULAR DIET. VAZQUEZ IN PLACE DRAINING LG AMOUNTS OF CLEAR PALE YELLOW URINE. BARKI BALLOON REMAINS IN TO UTERUS WITH MINIMAL SEROSANGUINOUS DRAININGE NOTED, CONTINUES ON NS AT 100ML/HR INFUSING VIA THE BLUE PORT OF THE RIJ TLC. THE WHITE AND BROWN PORTS WERE FLUSHED AND HAVE BLOOD RETURN. RH/LH IV'S ALSO FLUSHED.
--- NOTE | 2017-02-13 09:45 | NUR ---
DR FELICIANO WAS AT THE BEDSIDE AT 0915 AND REMOVED 60ML FROM THE BARKI BALLOON. TO RETURN AROUND 1100 TO REMOVE AN ADDITIONAL 60ML FROM THE BALLOON IF PT TOLERATED THE INITIAL 60ML REMOVED. IVF STOPPED AT THIS TIME.
--- NOTE | 2017-02-13 12:00 | PN- OBGYN ---
Surgical Brief Attending Note Brief Attending Note: pt is resting in bed, c/o gas pain and slight incisional pain. tolearte diet, apple in place, clear urine, flatus (-), barkri ballon in place, minimal blood drainged. PE: VSS Abdomen: soft, mild tender at incsion site. uterus firm, fundus below umbilicus. incsion bandage covered, no bleeding. Ext: edema, DCT (-) deflate bakri ballon 60ml at 9:15AM, 2nd time deflate 60ml around 11:30AM, no active vaginal bleeding seen. A/P: 31yo, s/p PLTCS, PPH, s/p massive blood transfusion, bakri ballon placement and B/L uterine artery embolization, POD #1 1. h/h 8.4/27 AM, stable, will continue monitor. management per ICU team. 2. will continue deflate bakri ballon, and remove if no active vaginal bleeding 3. RT PP care
--- NOTE | 2017-02-13 14:51 | NUR ---
DR FELICIANO TO THE BEDSIDE AT 1400. NOTIFIED OF SMALL AMOUNT OF DRIED BLOOD NOTED ON BLUE PAD UNDER THE PT. PER DR FELICIANO THIS IS OK AND WNL. PER THE PT DR FELICIANO DID NOT REMIVE THE FULL 60ML REMAINING IN THE BAKRI BALLOON BLEEDING WAS NOTED THE FLUID WAS BEING REMOVED. BALLOON REMAINS IN PLACE.
[2017-02-13 14:53] LABS: ABSOLUTE BASOPHIL COUNT 0 /CUMM (0.0-0.2); ABSOLUTE EOSINOPHIL COUNT 0 /CUMM (0.0-0.7); ABSOLUTE GRANULOCYTE CT 9.9 /CUMM (1.4-6.5); ABSOLUTE MONOCYTE COUNT 0.5 /CUMM (0.10-0.60); BASOPHIL % 0.3 % (0.0-2.0); EOSINOPHIL % 0.4 % (0-5); GRANULOCYTE % 86.2 % (42.2-75.2); MEAN CORPUSCULAR HGB 28.6 PG (27.0-31.0); MEAN CORPUSCULAR HGB CONC 33.7 G/DL (33.0-37.0); MEAN CORPUSCULAR VOLUME 84.9 FL (81.0-99.0); MEAN PLATELET VOLUME 8.6 FL (7.4-10.4); PLATELET COUNT 151 /CUMM (130-400); RED BLOOD CELL CT 2.94 /CUMM (4.20-5.40); WHITE BLOOD CELL COUNT 11.5 /CUMM (4.8-10.8)
--- NOTE | 2017-02-13 15:47 | PN- OBGYN ---
Surgical Brief Attending Note Brief Attending Note: pt H/H 8.11/19 ( same as AM), wilfredori ballon removed, minimal bleeding noted, will do pad count, monitor vaginal bleeding closely
[2017-02-13 16:00] VITALS: BP 146/90
--- NOTE | 2017-02-13 16:06 | NUR ---
THE BAKRI BALLOON WAS REMOVED BY DR FELICIANO AT 1530. PAD PLACED AND PER DR FELICIANO AN HOURLY PAD COUNT IS TO BE DONE. OOB TO THE RECLINER CHAIR AT 1545 WITH MIN ASSIST OF 2 PERSONS. MEDICATED AT 1515 WITH MYLICON 80MG PO.
[2017-02-14] VITALS: BP 154/80
[2017-02-14 05:10] LABS: ABSOLUTE BASOPHIL COUNT 0 /CUMM (0.0-0.2); ABSOLUTE EOSINOPHIL COUNT 0 /CUMM (0.0-0.7); ABSOLUTE GRANULOCYTE CT 10.1 /CUMM (1.4-6.5); ABSOLUTE LYMPH COUNT 1.1 /CUMM (1.2-3.4); ABSOLUTE MONOCYTE COUNT 0.5 /CUMM (0.10-0.60); BASOPHIL % 0.2 % (0.0-2.0); EOSINOPHIL % 0.4 % (0-5); GRANULOCYTE % 85.8 % (42.2-75.2); HEMATOCRIT 25.3 % (37-47); MEAN CORPUSCULAR HGB 28.5 PG (27.0-31.0); MEAN CORPUSCULAR HGB CONC 33.6 G/DL (33.0-37.0); MEAN CORPUSCULAR VOLUME 84.8 FL (81.0-99.0); MEAN PLATELET VOLUME 8.5 FL (7.4-10.4); PLATELET COUNT 190 /CUMM (130-400); RED BLOOD CELL CT 2.98 /CUMM (4.20-5.40); WHITE BLOOD CELL COUNT 11.8 /CUMM (4.8-10.8)
[2017-02-14 08:00] VITALS: BP 150/100
--- NOTE | 2017-02-14 10:00 | NUR ---
AT 0815 REC'D THE PT IN BED. REPOSITIONED FOR COMFORT. DENIES ANY PAIN AND STATES "THE GAS IS BETTER." PT ONLY REQUESTED ANGELICA CRACKERS AND APPLE JUICE FOR BREAKFAST. ST WITHOUT ECTOPY OER THE POWER PLANT ENGINEER. PT CONTINUES TO BE EDEMATOUS BUT LESS THAN YESTERDAY. BUE ARE 1+ MORE SO IN THE HANDS AND THE BLE ARE 2+. NESTOR BS ARE CLEAR WITH AN O2 AT OF 95% ON ROOM AIR. ABD IS DISTENDED AND SOFT WITH NORMOACTIVE BOWEL SOUNDS. ABD REMAINS IN PLACE TO THE LOWER ABD OVER DRESSING. DRESSING IS CLEAN, DRY AND INTACT. PAD CHANGED AND ONLY NOTED TO HAVE A SMALL AMOUNT OF BRIGHT RED BLOOD. VAZQUEZ REMOVED AT 0820 PER MD ORDER. PT VOIDED 400ML OF CLEAR PINK URINE(URINE MIXED WITH OBSTETRICAL BLOOD). RIJ TLC REMAINS IN PLACE-BOTH SOUMYA CAUSEY AND DOT NOTIFIED IT SHOULD BE REMOVED IF PT DOWNGRADED CANNOT RETURN TO THE [facility] WITH TLC IN PLACE.
--- NOTE | 2017-02-14 10:47 | NUR ---
BABY VISITING WITH PT AT THIS TIME. LIST OF MEDS REVIEWED WITH [place] HEARING AID TECHNICIAN.
[2017-02-14 12:00] VITALS: BP 138/83
--- NOTE | 2017-02-14 12:15 | PN- Resident CRCU ---
Subjective HPI/CRCU Issues: I saw the pt today at bedside,he is lying flat at bedside.sHe is comfortable , denies chest pain, palpitations, orthopnea, headache. She is eager to go home and be with the baby. Objective Vital Signs & I&O Last 8 Hrs of Vitals and I&O: Vital Signs Date Time Temp Pulse Resp B/P B/P Pulse O2 O2 Flow FiO2 Mean Ox Delivery Rate 02/14 1200 96 Room Air Room Air 02/14 1200 100.0 105 18 138/83 96 Room Air Room Air 02/14 0800 96 Room Air Room Air 02/14 0800 100.0 100 20 150/100 96 Room Air Room Air 02/14 0400 96 Room Air 02/14 0000 99.1 103 20 154/80 94 Room Air 02/14 0000 94 Room Air 02/13 2000 95 Room Air Exam General Appearance: well developed/nourished, alert, awake, anxious, obese Head: normal appearance Neck: normal inspection, supple, full range of motion Respiratory: normal breath sounds, chest non-tender, no respiratory distress, quiet respiration Cardiovascular: regular rate/rhythm Gastrointestinal: normal bowel sounds, soft Extremities: normal inspection, b/l pedal edema+ Skin: intact, normal color Sepsis Skin Exam (color): Normal for Ethnicity Weaning Parameters NIF: 31 Minute Volume: 12.7 Resp rate: 24 Vt: 550 Heart Rate: 105 Weaning Schedule Start Time: 1404 Minute Volume: 12.7 Resp Rate: 17 Vt: 770 Heart Rate: 106 End Time: 1435 Central Line Site: [facility] Nutrition Nutrition: P.O. diet Current Medications: Current Medications Sig/Tiago Start time Last Medication Dose Route Stop Time Status Admin Acetaminophen 650 MG Q4P PRN 02/14 1300 AC PO Acetaminophen 650 MG Q6P PRN 02/12 1315 DC 02/12 PO 2238 Ampicillin Sodium/ 3,000 MG Q6 02/12 0600 DC 02/14 Sulbactam Sodium IV 1221 Sodium Chloride 100 ML Bisacodyl 10 MG DAILY NEEDED PRN 02/14 1300 AC PA Bisacodyl 5 MG DAILY NEEDED PRN 02/14 1300 AC PO Docusate Sodium 100 MG BID 02/14 2200 AC PO Docusate Sodium 100 MG DAILY NEEDED PRN 02/12 1815 DC PO Hydroxyzine HCl 50 MG AT BEDTIME NEED.. 02/15 0000 AC PO Ibuprofen 800 MG Q6P PRN 02/14 1300 AC PO Magnesium Hydroxide 30 ML DAILY NEEDED PRN 02/14 1300 AC PO Morphine Sulfate 2 MG Q4P PRN 02/12 1315 DC IV Ondansetron HCl 4 MG ONCE ONE 02/14 0345 DC 02/14 IV 02/14 0346 0400 Ondansetron HCl 4 MG ONCE ONE 02/13 2115 DC 02/13 IV 02/13 211 2121 Oxycodone/ 1 TAB Q4P PRN 02/14 1300 AC Acetaminophen PO Oxycodone/ 2 TAB Q4P PRN 02/14 1300 AC Acetaminophen PO Oxycodone/ 1 TAB Q6P PRN 02/13 0945 DC 02/14 Acetaminophen PO 1221 Pantoprazole Sodium 40 MG DAILY 02/12 1000 DC 02/14 IV 1010 Senna 187 MG AT BEDTIME NEED.. 02/14 1300 AC PO Senna/Docusate Sodium 2 TAB DAILY 02/12 1814 DC 02/14 PO 1010 Simethicone 80 MG Q6P PRN 02/13 0945 DC 02/14 PO 0217 Antibiotics Antibiotic: UNASYN Impression/Plan Impression/Problem List Impression: Patient is 31-year-old para 1 status post came with hemorrhage requiring 8 prbc and 2 FFP, B/L uterine artery embolisation done with Uterine curettage and Barkri ballon placement done. She was transferred to ICU for close monitoring. Pt central line was removed today .Pt had a 400-500 ml blood loss spruting from the line site. compression was given for 30 min, and the blood stopped. Pressure was held and surgical PA/vascular surgeon were made awareUS carotid doppler ordered. 1 unit of blood transfusion given. Problem List: 1. hemorrhage 2. Acute Blood loss anemia Plan: * regular diet * vitals monitoring * w/f vaginal bleed. * Keep hb more than 7. If needed transfusion. * on unasyn can be switched to po. * replete electrolytes accordingly * ambulate at will * cantral line can be renoved tomorrow. * care * f/u US carotid Doppler Problem List: 1. hemorrhage 2. Pre-eclampsia affecting childbirth Pain Ratin Pain Location: wound site Tomorrow's Labs & Rationales: cbc Plan DVT/Prophylaxis: mechanical, pharmacological Code Status: Full Code
--- NOTE | 2017-02-14 13:10 | PN- OBGYN ---
Surgical Brief Attending Note Brief Attending Note: Patient is 31-year-old para 1 status post , pOD 2 WITH H/O hemorrhage requiring 8 prbc and 2 FFP, B/L uterine artery embolisation done with Uterine curettage and Barkri ballon placement done. She was transferred to ICU for close monitoring. NOW VAZQUEZ REMOVED, BAKRI REMOVED. HAS AMBULATED TO VOID X 2, TOLERATING PAIN AND PO. +SMALL FLATUS BUT "GAS PAINS". SCANT LOCHIA GENERAL: TIRED-APPEARING, NAD, PRESENT ABDOMEN: +SOFT, APPROPRIATELY TENDER FF@U-1 INC C/D/I +BETHEL EXT 2+ PEDAL EDEMA Laboratory Tests 02/14 02/13 0400 1355 Chemistry Sodium (137 - 145 mmol/L) 134 L Potassium (3.5 - 5.1 mmol/L) 4.2 Chloride (98 - 107 mmol/L) 103 Carbon Dioxide (22 - 30 mmol/L) 25 Anion Gap (5 - 16) 5 BUN (7 - 17 mg/dL) 10 Creatinine (0.5 - 1.0 mg/dL) 0.6 Estimated GFR (>60 ml/min) > 60 Glucose (65 - 99 mg/dL) 81 Calcium (8.4 - 10.2 mg/dL) 7.6 L Phosphorus (2.5 - 4.5 mg/dL) 3.7 Magnesium (1.6 - 2.3 mg/dL) 2.0 Total Bilirubin (0.2 - 1.3 mg/dL) 0.9 AST (14 - 36 U/L) 30 ALT (9 - 52 U/L) 26 Albumin (3.5 - 5.0 g/dL) 2.3 L Hematology CBC w Diff NO MAN DIFF REQ MAN DIFF ORDERED WBC (4.8 - 10.8 /CUMM) 11.8 H 11.5 H RBC (4.20 - 5.40 /CUMM) 2.98 L 2.94 L Hgb (12.0 - 16.0 G/DL) 8.5 L 8.4 L Hct (37 - 47 %) 25.3 L 25.0 L MCV (81.0 - 99.0 FL) 84.8 84.9 MCH (27.0 - 31.0 PG) 28.5 28.6 RDW (11.5 - 14.5 %) 16.0 H 16.0 H Plt Count (130 - 400 /CUMM) 190 151 MPV (7.4 - 10.4 FL) 8.5 8.6 Gran % (42.2 - 75.2 %) 85.8 H 86.2 H Lymphocytes % (20.5 - 51.1 %) 9.2 L 9.0 L Monocytes % (1.7 - 9.3 %) 4.4 4.1 Eosinophils % (0 - 5 %) 0.4 0.4 Basophils % (0.0 - 2.0 %) 0.2 0.3 Absolute Granulocytes (1.4 - 6.5 /CUMM) 10.1 H 9.9 H Absolute Lymphocytes (1.2 - 3.4 /CUMM) 1.1 L 1.0 L Absolute Monocytes (0.10 - 0.60 /CUMM) 0.5 0.5 Absolute Eosinophils (0.0 - 0.7 /CUMM) 0 0 Absolute Basophils (0.0 - 0.2 /CUMM) 0 0 Platelet Estimate (ADEQUATE) VERIFIED BY SMEAR Polychromasia 1+ Poikilocytosis 1+ Basophilic Stippling 1+ Anisocytosis 1+ Ovalocytes 1+ PUBS MCHC (33.0 - 37.0 G/DL) 33.6 33.7 Vital Signs Date Time Temp Pulse Resp B/P B/P Pulse O2 O2 Flow FiO2 Mean Ox Delivery Rate 02/14 0800 96 Room Air Room Air 02/14 0800 100.0 100 20 150/100 96 Room Air Room Air 02/14 0400 96 Room Air 02/14 0000 99.1 103 20 154/80 94 Room Air 02/14 0000 94 Room Air 02/13 2000 95 Room Air 02/13 1600 99 Nasal 2.0L Cannula 02/13 1600 100.0 102 20 146/90 99 Nasal 2.0L Cannula Intake & Output 02/14 1600 02/14 0800 02/14 0000 Intake Total 400 390 Output Total 990 1300 Balance -590 -910 Intake, IV 200 100 Intake, Oral 200 290 Output, Urine 990 1300 Problem List/ PLAN: 1. hemorrhage, POSTOP C/S 2. Acute Blood loss anemia. HEMODYNAMICALLY STABLE STABLE TO TRANSFER BACK TO ELEVATED BPS, PLAN LABETOLOL 100BID DC ANTIBIOTICS (GIVEN EMPIRICALLY) ROUTINE POST OP CARE.
--- NOTE | 2017-02-14 13:55 | Event Note ---
Event Note Event Note: Situation: Central line removal from right side of neck. Dressing and sutures were removed and patient was instructed to hold her breath. Upon removal of central line bright red pulsatile blood was observed to be projecting from the insertion site resulting in approximately 400-500cc of blood loss. Background: 31 year old woman admitted to ICU s/p post hemorrhage requiring 8 units packed red blood cells. Assessment/Plan: Pressure was held and surgical PA/vascular surgeon were made aware. CBC was ordered and one units of packed red blood cells were ordered. Carotid ultrasound is ordered to assess for AV fistula. Post-transfusion CBC is ordered. Bleeding was controlled with 30 minutes of pressure. -Follow up CBC now to assess baseline blood loss -Tranfuse one PRBC -Follow up post-transfusion CBC -Follow up carotid ultrasound to assess for AV fistula -Follow surgical recommendations
[2017-02-14 14:15] LABS: ABSOLUTE BASOPHIL COUNT 0 /CUMM (0.0-0.2); ABSOLUTE EOSINOPHIL COUNT 0 /CUMM (0.0-0.7); ABSOLUTE GRANULOCYTE CT 8.9 /CUMM (1.4-6.5); ABSOLUTE LYMPH COUNT 1.2 /CUMM (1.2-3.4); ABSOLUTE MONOCYTE COUNT 0.5 /CUMM (0.10-0.60); BASOPHIL % 0.1 % (0.0-2.0); EOSINOPHIL % 0.4 % (0-5); HEMATOCRIT 24.3 % (37-47); MEAN CORPUSCULAR HGB 28.2 PG (27.0-31.0); MEAN CORPUSCULAR HGB CONC 33.3 G/DL (33.0-37.0); MEAN CORPUSCULAR VOLUME 84.7 FL (81.0-99.0); MEAN PLATELET VOLUME 7.3 FL (7.4-10.4); PLATELET COUNT 213 /CUMM (130-400); RBC DISTRIBUTION WIDTH 16.2 % (11.5-14.5); RED BLOOD CELL CT 2.87 /CUMM (4.20-5.40); WHITE BLOOD CELL COUNT 10.6 /CUMM (4.8-10.8)
--- NOTE | 2017-02-14 14:18 | Event Note ---
Event Note Event Note: Called emergently to bedside by housestaff due to severe projectile bleeding s/p removal of right IJ triple lumen catheter which was placed by anesthesia two days ago. Upon entrance to room, housestaff was holding pressure over right neck with multiple layers of sanguinous saturated gauze. Heme was noted to front of gown, on bed linens, and in patient's hair. Housestaff was able to state they had already held 20 minutes of pressure. Application of pressure was transferred and pinpoint pressure was applied to IJ site as well as inferiorly. Pulsation was noted below fingertips. Another 10 minutes of pressure was held. Upon removal of pressure, no bleeding was identified. No soft tissue mass to suggest hematoma was identified. Systolic BP throughout entire process was in 130s, HR 90s. Pressure dressing applied. Patient tolerated procedure well. Right carotid ultrasound ordered for 5pm to assess for AV fistula formation between internal jugular vein and carotid artery. Housestaff to follow up.
[2017-02-14 14:39] LABS: GRANULOCYTE % 84.3 % (42.2-75.2)
--- NOTE | 2017-02-14 15:15 | NUR ---
RIJ TLC [place] REMOVED BY SOUMYA CAUSEY AND Shiela CHRIS AT 1315. UPON REMOVAL PT NOTED TO HAVE EXCESSIVE BLEEDING. PER MDS THE EBL WAS 400-500ML. PRESSURE APPLIED BY THE HOUSESTAFF WITH DR CABRAL IN ATTENDANCE. SURGERY NOTIFIED AND BOTH Pierre EASON AND Elaine WYATT PA-C WERE AT THE PT'S BEDSIDE. PRESSURE APPLIED FOR A TOTAL OF 30 MINUTES BY WHICH TIME THE BLEEDING CEASED. PRESSURE DRESSING APPLIED BY SAHRA. DR SAWANT IN TO EVALUATE PT ALSO. PT TO HAVE A R CAROTID ULTRASOUND AT 1700. NO BLEEDING NOTED AT PRESENT. PT HAD A CBC AND TYPE AND SCREEN ORDERED. TO RECEIVE ONE UNIT OF PRBC'S PRIOR TO TRANSFER TO THE CHILD CENTER. VS REMAINED STABLE THROUGHOUT THE EVENT WITH THE SBP 120'S TO 130'S.
[2017-02-14 16:00] VITALS: BP 137/81
--- NOTE | 2017-02-14 19:34 | NUR ---
PT FINISHED ONE UNIT OF PRBC'S AT 1830. REPEAT CBC DUE AT 1999. NO FURTHER BLEEDING FROM THE RIJ TLC SITE NOTED. PT IS CURRENTLY HAVING A BEDSIDE R CAROTID ULTRASOUND PERFORMED. UPON COMPLETION THE PT WILL BE TRANSFERRED TO THE CBC. ALICE IN CBC NOTIFIED AND REPORT GIVEN TO THE ONCOMING VIOLENT CRIMES DETECTIVE.
--- NOTE | 2017-02-14 20:26 | ULTRASOUND REPORT ---
EXAMINATION: US DUPLEX CAROTID AND VERTEBRAL CLINICAL INFORMATION: Bleed status post central line removal. Assess for AV fistula. COMPARISON: None TECHNIQUE: Real-time ultrasound and Doppler techniques (integrating B-mode 2D vascular images, Doppler spectral analysis and color flow Doppler imaging) were utilized to interrogate the extracranial carotid and vertebral arteries bilaterally. The degree of stenosis determined by criteria similar to NASCET. FINDINGS: No arteriovenous fistula is visualized on this exam. Right common carotid artery peak systolic velocities range between 102 and 126 cm/s with maximal end-diastolic velocity of 29.1 cm/s right internal carotid artery peak systolic velocities range between 75.4 and 99 cm/s with a maximal end-diastolic velocity of 37.7 cm/s. Right external carotid artery peak systolic velocity is 80.9 cm/s. There is antegrade flow within the right vertebral artery. No atherosclerotic plaque at the right carotid bifurcation. Left common carotid artery peak systolic velocities range between 67.6 and 91.1 cm/s with a maximal and S-type velocity of 19.6 cm/s. Left internal carotid artery peak systolic velocities range between 86.4 and 107 cm/s with a maximal end-diastolic velocity of 40.1 cm/s. Left external carotid artery peak systolic velocity is 97.4 cm/s with a maximal end-diastolic velocity is 17.3 cm/s. There is antegrade flow within the left vertebral artery. No atherosclerotic plaque at the left carotid bifurcation. IMPRESSION: No arteriovenous fistula is visualized on this exam. Unremarkable carotid ultrasound.
[2017-02-14 21:00] VITALS: BP 142/76
[2017-02-14 22:17] LABS: ABSOLUTE BASOPHIL COUNT 0 /CUMM (0.0-0.2); ABSOLUTE EOSINOPHIL COUNT 0.1 /CUMM (0.0-0.7); ABSOLUTE GRANULOCYTE CT 9.2 /CUMM (1.4-6.5); ABSOLUTE LYMPH COUNT 1.2 /CUMM (1.2-3.4); ABSOLUTE MONOCYTE COUNT 0.5 /CUMM (0.10-0.60); BASOPHIL % 0.3 % (0.0-2.0); EOSINOPHIL % 0.8 % (0-5); HEMATOCRIT 26.4 % (37-47); MEAN CORPUSCULAR HGB 29.2 PG (27.0-31.0); MEAN CORPUSCULAR HGB CONC 33.9 G/DL (33.0-37.0); MEAN CORPUSCULAR VOLUME 86.2 FL (81.0-99.0); PLATELET COUNT 215 /CUMM (130-400); RBC DISTRIBUTION WIDTH 15.8 % (11.5-14.5); RED BLOOD CELL CT 3.07 /CUMM (4.20-5.40)
[2017-02-14 22:24] LABS: GRANULOCYTE % 83.4 % (42.2-75.2)
[2017-02-15 10:25] LABS: ABSOLUTE BASOPHIL COUNT 0 /CUMM (0.0-0.2); ABSOLUTE EOSINOPHIL COUNT 0.2 /CUMM (0.0-0.7); ABSOLUTE GRANULOCYTE CT 6.5 /CUMM (1.4-6.5); ABSOLUTE LYMPH COUNT 1.3 /CUMM (1.2-3.4); ABSOLUTE MONOCYTE COUNT 0.4 /CUMM (0.10-0.60); BASOPHIL % 0.4 % (0.0-2.0); EOSINOPHIL % 2.1 % (0-5); GRANULOCYTE % 77.3 % (42.2-75.2); HEMATOCRIT 25.8 % (37-47); MEAN CORPUSCULAR HGB 28.7 PG (27.0-31.0); MEAN CORPUSCULAR HGB CONC 33.5 G/DL (33.0-37.0); MEAN CORPUSCULAR VOLUME 85.7 FL (81.0-99.0); MEAN PLATELET VOLUME 7.6 FL (7.4-10.4); PLATELET COUNT 209 /CUMM (130-400); RBC DISTRIBUTION WIDTH 15.6 % (11.5-14.5); RED BLOOD CELL CT 3.02 /CUMM (4.20-5.40); WHITE BLOOD CELL COUNT 8.4 /CUMM (4.8-10.8)
--- NOTE | 2017-02-15 12:27 | PN- OBGYN ---
Surgical Brief Attending Note Brief Attending Note: PT OVERALL IS IMPROVED. SHE HAS BEEN AMBULATING TO VOID, TOLERATING PAIN AND PO. +FLATUS. MODERATE LOCHIA NOTED. BPS HAVE BEEN STABLE. YESTERDAY TRANSFUSED DUE TO BLEEDING AFTER REMOVAL OF TRIPLE LUMEN CATHETER. U/S PERFORMED YESTERDAY AND NO AV FISTULA NOTED. PT EXPRESSED TO NURSE THIS AM THAT HAS H/O INPT HOSPITALIZATION IN PAST FOR DEPRESSION/ANXIETY, NOW NOTING SIMILAR SX , SHE IS REQUESTING A PSYCH EVALUATION. NOTES NIGHTMARES AND "REPLAYING OF EVENTS OF THE PAST FEW DAYS". VSSAF FF@U INC C/D/I +BETHEL EXT: NO CALF TENDERNESS 2+PEDAL EDEMA B/L LE A/P POSTOP DAY 4. S/P IOL FOR PREECLAMPSIA W/O SEVERE FEATURES, PRIMARY LTCS , HEMMORHAGE REQUIRING MASSIVE TRANSFUSION, BAKRI BALLOON. TRANSFERRED BACK TO [facility] LAST NIGHT. POSTOPERATIVELY, OVERALL IMPROVED. WILL CONTINUE OBSERVATION TODAY. POSSIBLE D/C TO OR FRIDAY. H/O DEPRESSION IN PAST AND HIGH RISK FOR DEPRESSION. PSYCH CONSULT PLACED.
--- NOTE | 2017-02-15 16:43 | Cons- Psychiatry ---
Psychiatric Consult Date of Consult: 02/15/17 Reason for Consult: complicated delivery History of Present Illness: Patient seen chart reviewed d/w nursing staff. She was seen with andrei gamino. 31 y./o MF s/p complicated has a hx of depression and 1 inpatient psych hospitalization reports following delivery NM andFB in regards to her traumatic . she reported feelign overwhelmed anxious with poor sleep and ruminative thoughts since "i was basically in a coma". she denies any other depressive sx "i was sad briefly but ok now" denies thoughts of self harm or thoughts toward baby "we have been connecting and it was hard since i didnt see her right away because of the delivery". She has been able to breast feed appetite has returned and she has been sleeping well despite NM. She denies previous manic sx denies previous trauma or ptsd denies previous psychosis. no drugs or alcohol. She reports feeling hopeful and feels that discharing tomorrow as anticipated will really help with her moving on. She was in 1;1 counseling with Ira Garsia in [place] last seen 1 yeawr ago since they moved to [facility] and she states events leading up to were unremarkeable denying any depressive or psychiatric sx. Past Psych: she reports depression and eating d/o hx with 1 hospital stay in high school for 1 week and prozac med trials following a OD and some self injurious behaviors via wrist cutting. Nothing since then besides intermittent 1 ;1 counseling last 1 year ago. Family hx: she denies, she lives with in [place], no hx of abuse growing up was working before going on leave for M[employer]: CF, ASA, sitting comfortable no pmr/pma cooperative pleasant with fair eye contact. normal speach. "ok" mood full range affect tearful when discussing c section but bright when thinking and speaking about daughter "Ayana is just so beatuitful". denies si/hi or psychosis. Assoc wnl i/j fair a/p acute stress disorder, r/o mood d/o 2nd to Medical event no risk to self or others, no depressive sx, anxiety in the context of traumatic delivery, d/w patient medication options for NM/FB which she declines and choosing to f/u with 1;1 counseling upon dc which doesnt have risk of breats milk tranmission to baby. expressed no risk concern for pt. 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
[2017-02-16] MEDS ORDERED: PERCOCET 5-3251 EACH PO (08:15)
[2017-02-16] MEDS ORDERED: FERRALET 90 TA1 EACH PO (08:15)
[2017-02-16] MEDS ORDERED: IBUPROFEN800 M1 PO (08:15)
--- NOTE | 2017-02-16 08:26 | PN- OBGYN ---
Surgical Brief Attending Note Brief Attending Note: NICOLAS IS DOING QUITE WELL AND DESIRES DISCHARGE TO HOME. SHE IS NOW AMBULATING, VOIDING, TOLERATING PAIN AND PO. SHE IS PUMPING/NURSING WITH A SHIELD. SMALL TO MODERATE LOCHIA. SHE DENIES FEVERS, CHILLS, NAUSEA, VOMITING, SOB,CP, DIZZINESS. HAD SEEN PSYCH YESTERDAY. NO RX BUT PT ADVISED TO F/U WITH OUTPT COUNSELING. ATTEMPTS MADE TO MAKE ARRANGEMENTS FOR HER BUT UNSUCCESSFUL OVER THE WEEKEND. VS: 130/80 SINCE RETURNING TO CBC BPS 120-130S/60-80S (ONE TIME 150/92) GENERAL: NAD, RESTING IN BED ABDOMEN: SOFT, APPROPRIATELY TENDER INC: C/D/I EXT: NO CALF TENDERNESS 1+ TO 2+ B/L PEDAL EDEMA A/P POD 5. S/P PRIMARY LTCS FOR FAILED INDUCTIN FOR MILD PREECLAMPSIA COMPLICATED BY PPH. HEMODYNAMICALLY STABLE. BPS STABLE. DOING QUITE WELL AND READY FOR DISCHARGE. POSTOP AND PREECLAMPSIA PRECAUTIONS REVIEWED.
--- NOTE | 2017-02-16 08:48 | Discharge Summary ---
Visit Information Visit Dates Admission Date: 02/10/17 Discharge Date: 02/16/2017 Hospital Course Course Attending Physician: MILAGRO WATTS DO, XIAOLAN FEI, MD Primary Care Physician: PATIENT HAS NO PRIMARY CARE DR Consulting Request: Consulting Specialty: Psychiatry Hospital Course: 31-year-old 1 para 0 who presented at 38 weeks and 2 days for induction of labor for mildly preeclampsia. She began presenting to the office with elevated blood pressures at 36 weeks and 5 days. The pressures have ranged from 140-160/80 to 90s. On admission, blood pressure 137/83, blood pressures that day ranged from 137-150/83-100. She had a recent 24-hour urine collection with a total protein of 666 mg. She denied headaches, visual changes, right upper quadrant or epigastric pain. Patient's history was significant for acid reflux for which she has been taking Zantac, history of depression in 2002 she did not require medication during , history of eating disorder, BMI of 36.4 at initial visit. She relayed a history of a "hole in her heart at ". She had normal ATU visits and echocardiogram. On day of admission her cervix was noted to be closed and heart rate tracing was reassuring. Cervidil was placed and she rested overnight. The following day hospital day #2, Dr. Qiu assumed care of this patient. Please refer to her report of her operative notes. Per Dr. Qiu's notes, fetus experienced variable decles to 70-90, then return to baseline however her cervix remained unfavorable 1-2 cm/60%/-3. She d/w pt about intolerance of labor, remote from delivery, plan for c- section. Pt underwent primary low transverse section that was significant for heavy bleeding.Findings: Female infant in cephalic presentation , head wedged in the pelvis, weight 6 lbs. 3 oz., Apgars 7 and 8 and 9. multiple uterine fibroids were noted ,1 anterior intramural fibroid just above the uterine incision, heavy bleeding encountered during surgery. Normal ovaries and tubes. In recovery room hemoglobin was 9.0, BP 110-90/60-50s, P 80-90s average, due to estimated blood loss 1200 during the surgery, the patient was transfused with 2 units of packed red blood cells. Due to persistent heavy vaginal bleeding despite Hemabate, Dr. Qiu brought her back to the operating room for an exam under anesthesia where she was examined under anesthesia, evacuated large clots from the uterine cavity, estimated blood loss 500ml. at this time patient was found tachycardia, heart rate at 130-140,hypotension due to acute blood loss. Massive transfusion protocol activated, patient was stabilized by anesthesia. Attention was then turned to uterine bleeding, 1 dose of Hemabate was injected to the cervix. Gentle curettage was also done with Myles curet. A Barkri balloon was placed into the lower uterine segment, 180 mL normal saline was used to inflate the balloon. Observe patient, no active bleeding from the vagina seen. Interventional radiology informed, and the patient underwent a bilateral uterine artery embolization. She was transferred to the ICU for diagnosis of hemorrhagic shock secondary to and she was transfused until hemodynamically stable. She received Mild sinus tachycardia, without chest pain, shortness of breath or increased hypoxemia. She was extubated and recovered appropriately. She was in the ICU until the evening of February 14. By the time she was discharged from the ICU her Mcarthur catheter had been removed and she had been up to void and had ambulated a small amount. She was tolerating pain with oral pain medicine. Her back repeat balloon had been removed and she had scant vaginal bleeding. She was without symptoms of orthostasis. Just prior to discharge from the ICU, upon removal of her triple-lumen catheter, she had significant bleeding. It appeared that her catheter was in her carotid artery. And per the ICU notes she lost approximately 500 mL of blood. It was stabilized with pressure however she was transfused an additional 2 units of packed red blood cells. She additionally was sent for a ultrasound of her neck that ruled out an arteriovenous fistula. Later that evening she was transferred out of the ICU and back to the childbirth center. After spending 2 nights in the child center, she was ready for discharge. She is ambulating, voiding, tolerating pain and by mouth, passing flatus, noting small to moderate lochia, nursing and pumping. She is requesting discharge. Yesterday she had noted a history of depression and previous inpatient hospitalization for depression in the remote past. She was without suicidal or homicidal ideation. A psych consult was obtained and she was cleared for mental health standpoint she is advised follow-up with her counselor. Complications: hemorrhage requiring massive transfusion, return to the operating room for dilation and curettage, insertion of Bakri intrauterine balloon and admission to ICU for further monitoring Bleeding related to removal of triple-lumen catheter Allergies: Coded Allergies: pineapple (Mild, ITCHING 02/12/17) Significant Procedures: section Return to the operating room for hemorrhage and second procedure included dilation and curettage and insertion of Bakri balloon catheter Bilateral uterine artery embolization performed by interventional radiology ICU admission Psychiatry consult Pertinent Lab Results: Laboratory Tests 02/15/17 0845: CBC w Diff NO MAN DIFF REQ, RBC 3.02 L, MCV 85.7, MCH 28.7, RDW 15.6 H, MPV 7.6, Gran % 77.3 H, Lymphocytes % 15.8 L, Monocytes % 4.4, Eosinophils % 2.1, Basophils % 0.4, Absolute Granulocytes 6.5, Absolute Lymphocytes 1.3, Absolute Monocytes 0.4, Absolute Eosinophils 0.2, Absolute Basophils 0, PUBS MCHC 33.5 02/14/17 2030: CBC w Diff NO MAN DIFF REQ, RBC 3.07 L, MCV 86.2, MCH 29.2, RDW 15.8 H, MPV 8.0, Gran % 83.4 H, Lymphocytes % 11.0 L, Monocytes % 4.5, Eosinophils % 0.8, Basophils % 0.3, Absolute Granulocytes 9.2 H, Absolute Lymphocytes 1.2, Absolute Monocytes 0.5, Absolute Eosinophils 0.1, Absolute Basophils 0, PUBS MCHC 33.9 02/14/17 1700: CBC w Diff Cancelled, WBC Cancelled, RBC Cancelled, Hgb Cancelled, Hct Cancelled , MCV Cancelled, MCH Cancelled, RDW Cancelled, Plt Count Cancelled, MPV Cancelled, PUBS MCHC Cancelled 02/14/17 1400: CBC w Diff NO MAN DIFF REQ, RBC 2.87 L, MCV 84.7, MCH 28.2, RDW 16.2 H, MPV 7.3 L, Gran % 84.3 H, Lymphocytes % 10.9 L, Monocytes % 4.3, Eosinophils % 0.4, Basophils % 0.1, Absolute Granulocytes 8.9 H, Absolute Lymphocytes 1.2, Absolute Monocytes 0.5, Absolute Eosinophils 0, Absolute Basophils 0, PUBS MCHC 33.3 02/14/17 0400: Anion Gap 5, Estimated GFR > 60, Glucose 81, Calcium 7.6 L, Phosphorus 3.7, Magnesium 2.0, Total Bilirubin 0.9, AST 30, ALT 26, Albumin 2.3 L, CBC w Diff NO MAN DIFF REQ, RBC 2.98 L, MCV 84.8, MCH 28.5, RDW 16.0 H, MPV 8.5, Gran % 85.8 H, Lymphocytes % 9.2 L, Monocytes % 4.4, Eosinophils % 0.4, Basophils % 0.2, Absolute Granulocytes 10.1 H, Absolute Lymphocytes 1.1 L, Absolute Monocytes 0.5, Absolute Eosinophils 0, Absolute Basophils 0, PUBS MCHC 33.6 02/13/17 1355: CBC w Diff MAN DIFF ORDERED, RBC 2.94 L, MCV 84.9, MCH 28.6, RDW 16.0 H, MPV 8.6, Gran % 86.2 H, Lymphocytes % 9.0 L, Monocytes % 4.1, Eosinophils % 0.4, Basophils % 0.3, Absolute Granulocytes 9.9 H, Absolute Lymphocytes 1.0 L, Absolute Monocytes 0.5, Absolute Eosinophils 0, Absolute Basophils 0, Platelet Estimate VERIFIED BY SMEAR, Polychromasia 1+, Poikilocytosis 1+, Basophilic Stippling 1+, Anisocytosis 1+, Ovalocytes 1+, PUBS MCHC 33.7 Vital Signs Date Time Temp Pulse Resp B/P B/P Pulse O2 O2 Flow FiO2 Mean Ox Delivery Rate 02/14 2100 99.2 96 20 142/76 96 Room Air 02/14 1600 99 Room Air Room Air 02/14 1600 99.0 92 92 137/81 99 Room Air Room Air 02/14 1200 96 Room Air Room Air 02/14 1200 100.0 105 18 138/83 96 Room Air Room Air 02/14 0800 96 Room Air Room Air 02/14 0800 100.0 100 20 150/100 96 Room Air Room Air 02/14 0400 96 Room Air 02/14 0000 99.1 103 20 154/80 94 Room Air 02/14 0000 94 Room Air 02/13 2000 95 Room Air 02/13 1600 99 Nasal 2.0L Cannula 02/13 1600 100.0 102 20 146/90 99 Nasal 2.0L Cannula 02/13 1200 96 Nasal 2.0L Cannula 02/13 0800 97 Nasal 2.0L Cannula 02/13 0800 99.0 98 18 130/80 97 Nasal 2.0L Cannula 02/13 0730 99.0 02/13 0400 95 Nasal 2.0L Cannula 02/13 0000 99.1 119 20 120/60 94 Nasal 2.0L Cannula 02/12 2146 96 Nasal 2.0L Cannula 02/12 1600 96 Nasal 2.0L Cannula 02/12 1600 99.0 122 18 143/69 96 Nasal 2.0L Cannula 02/12 1200 100 Ventilator 40% 02/12 1053 40 02/12 0838 100 Ventilator 100% 02/12 0822 40 02/12 0800 100 Ventilator 40% 02/12 0800 98.7 96 24 110/56 100 Ventilator 40% 02/12 0420 100 Microbiology Date/Time Procedure - Status Source Growth 02/12 0810 Surveillance Culture - COMP UPPER RESP 02/12 0810 Surveillance Culture - COMP GI 02/11 2200 Urine Culture - COMP URINE ROUT Orders Procedure Date/time Status Discharge Patient 02/16 UNK Active ED CRISIS PSYCH CONSULT 02/15 0920 Active CBC WITHOUT DIFFERENTIAL 02/15 0600 Complete Regular Diet 02/14 D Active Transfer Disposition 02/14 2217 Active CBC WITHOUT DIFFERENTIAL 02/14 2000 Complete BLOOD PRODUCT PICKUP 02/14 1514 Active TYPE & SCREEN (NOT X-MATCH) 02/14 1342 Complete CBC WITHOUT DIFFERENTIAL 02/14 1335 Complete LEUKOCYTE POOR (PACKED CELLS) 02/14 1335 Active Pathway - chart 02/14 1256 Active Misc Message 02/14 1256 Active Wound Care/Dressing 02/14 1256 Active Vital Signs 02/14 1256 Active CBC: Device(s) 02/14 1256 Active Activity/Ambulation 02/14 1256 Active TRANSFER ORDERS 02/14 1250 Complete ICU LAB BUNDLE 02/14 0500 Complete CBC WITHOUT DIFFERENTIAL 02/14 0500 Complete VTE Mechanical Prophylaxis 02/14 UNK Active Nursing Misc 02/14 UNK Active Activity/Ambulation 02/14 UNK Active PSYCHIATRIC CONSULT 02/14 UNK Active CBC WITHOUT DIFFERENTIAL 02/13 1400 Complete Mcarthur, Insertion/Removal/Asses 02/13 1332 Complete Disposition Summary Disposition Principal Diagnosis: Term Preeclampsia without severe features Additional Diagnosis: hemorrhage Depression Discharge Disposition: home or self care Discharge Instructions General Discharge Information Code Status: Full Code Patient's Diet: Regular Patient's Activity: pelvic rest and no heavy lifting for 6 weeks Follow-Up Instructions/Appts: Follow-up at the childbirth center for an early return visit next week [facility] at 2 weeks and 6 weeks postop Follow-up with counselor in [place] until establishes care with a counselor closer to home Follow up as per psych recommendations Medications at Discharge Discharge Medications: Continue taking these medications: Vit No.129/Iron/FA ( One Daily Tablet) 27 MG IRON-800 MCG TABLET 1 Tablet ORAL DAILY Start taking the following new medications: Ibuprofen (Ibuprofen) 800 MG TABLET 800 Milligram ORAL EVERY SIX HOURS NEEDED as needed for UTERINE CRAMPING Qty = 30 No Refills Comments: Last Taken:02/16/17 Time:614 Oxycodone HCl/Acetaminophen (Percocet 5-325 MG Tablet) 5 MG-325 MG TABLET 1 Tablet ORAL EVERY 4 HOURS NEEDED as needed for PAIN SCALE 4-6 (MODERATE ) Qty = 30 No Refills Comments: Last Taken:02/16/17 Time:614 Iron Carb,Gl/FA/B12/C/Docusate (Ferralet 90 Tablet) 90 MG-1 MG-12 MCG-120 MG-50 MG TABLET 1 Tablet ORAL DAILY Qty = 90 Refills = 3 Copies To: MILAGRO WATTS DO
== END 2017-02-16 10:39 | DRG 765 ==
LOC: GNO 12:27 → CRI 12:27 → GNO 12:27 → CRI 02-12 04:16 → GNO 02-14 22:20
PROVIDERS: Internal Medicine; Internal Medicine Interventional Cardiology; Obstetrics & Gynecology; Student in an Organized Health Care Education/Training Program; ADMIT Obstetrics & Gynecology
PROC: 3E0P7GC Introduction of Other Therapeutic Substance into Female Reproductive, Via Natural or Artificial Opening (ICD-10-PCS; 2017-02-10)
PROC: 10D00Z1 Extraction of Products of Conception, Low, Open Approach (ICD-10-PCS; principal; 2017-02-11)
PROC: 0W3R7ZZ Control Bleeding in Genitourinary Tract, Via Natural or Artificial Opening (ICD-10-PCS; 2017-02-12)
PROC: 04LE3DT Occlusion of Right Uterine Artery with Intraluminal Device, Percutaneous Approach (ICD-10-PCS; 2017-02-12)
PROC: 04LF3DU Occlusion of Left Uterine Artery with Intraluminal Device, Percutaneous Approach (ICD-10-PCS; 2017-02-12)
PROC: 0UC97ZZ Extirpation of Matter from Uterus, Via Natural or Artificial Opening (ICD-10-PCS; 2017-02-12)
PROC: 0UDB7ZZ Extraction of Endometrium, Via Natural or Artificial Opening (ICD-10-PCS; 2017-02-12)
PROC: B40 Imaging, Lower Arteries, Plain Radiography (ICD-10-PCS; 2017-02-12)
PROC: 30233N1 Transfusion of Nonautologous Red Blood Cells into Peripheral Vein, Percutaneous Approach (ICD-10-PCS; 2017-02-12)
PROC: 30233L1 Transfusion of Nonautologous Fresh Plasma into Peripheral Vein, Percutaneous Approach (ICD-10-PCS; 2017-02-12)
DX: O14.04 Mild to moderate pre-eclampsia, complicating childbirth (principal); D62 Acute posthemorrhagic anemia; O72.1 Other immediate postpartum hemorrhage; O90.81 Anemia of the puerperium; O76 Abnormality in fetal heart rate and rhythm complicating labor and delivery; F43.9 Reaction to severe stress, unspecified; O34.13 Maternal care for benign tumor of corpus uteri, third trimester; D25.1 Intramural leiomyoma of uterus; O26.893 Other specified pregnancy related conditions, third trimester; Z3A.38 38 weeks gestation of pregnancy; Z37.0 Single live birth
CPT/HCPCS: CCU; GNOP; GNOS; 36415; 81001; 82436; 82570; 84112; 86920; 87086; 93005; 93010; 94799; C1725; J0131; J0610; J0690; J1644; J1815; J7120; P9016; P9017; Q9967